=== PATIENT | female | born 1995 | race American Indian/Alaskan Native ===

== ENCOUNTER 2020-11-07 10:59 | Emergency (ER) | payer OTHER, SELFPAY ==
--- NOTE | ~2020-11-07 | XR_ITS ---
EXAMINATION: XR CHEST CLINICAL INFORMATION: Chest pain COMPARISON: None TECHNIQUE: 2 views of the chest were obtained. FINDINGS: No significant abnormality is noted involving the heart, lungs, mediastinum, bony thorax or soft tissues. XR/XR chest 2V IMPRESSION: Unremarkable chest examination.
[2020-11-07 11:59] VITALS: BP 111/72; PULSE 74; RESP 18; TEMP 36.5; O2SAT 100; BMI 27.4
--- NOTE | 2020-11-07 12:16 | ED_ITS ---
HPI - General Adult General Chief complaint: General Medical Stated complaint: quest to covid vaccine Time Seen by Provider: 11/07/20 12:16 Source: patient Mode of arrival: ambulatory Limitations: no limitations History of Present Illness HPI narrative: 25-year-old female presents with chest pain after receiving her COVID pfizer vaccination 3 days ago. This was her 1st dose. Patient states she received the COVID vaccination 3 days ago, and then 2 days ago she started having chest pain. The chest pain is constant and is substernal. It is both aching and sharp. The pain fluctuates between a 3/10 to an 8/10. The pain is worse when she takes a deep breath. She feels tired. She is not short of breath, no nausea or vomiting, no sweating. She is not a smoker, no history of hypertension or hyperlipidemia, no family history of cardiac problems. Patient has no pain in her bilateral calves, she is not on any estrogen, no recent trauma or illness or immobilizations, no history of blood clots. Onset (ago): day(s) (2) Location: chest Radiation: non-radiation Severity: moderate Quality: aching and sharp Pain Consistency: constant Relieving factors: none Exacerbating factors: other (deep breath) Associated symptoms: chest pain Treatments prior to arrival: none Related Data Allergies Allergy/AdvReac Type Severity Reaction Status Date / Time No Known Allergies Allergy Unverified 10/29/19 16:17 Review of Systems Constitutional: Constitutional: Denies body ache(s), Denies chills, Denies fatigue, Denies fever(s), Denies headache(s), Denies malaise and Denies weakness Eyes: Eyes: Denies diplopia ENT: Denies vertigo, Denies dizziness, Denies otalgia, Denies headache(s), Denies mouth pain, Denies post nasal drip, Denies sinus pain, Denies sinus pressure, Denies sore throat and Denies throat swelling Cardiovascular: Cardiovascular: Reports chest pain, Denies Epigastric Pain, Denies syncope, Denies leg edema, Denies lightheadedness, Denies Loss of Consciousness, Denies radiating jaw, neck or arm pain, Denies palpitations, Denies dyspnea and Denies dyspnea on exertion Respiratory: Respiratory: Denies chest congestion, Denies cough, Reports pain on inspiration, Denies dyspnea, Denies dyspnea on exertion and Denies wheezing Gastrointestinal: Gastrointestinal: Denies abdominal pain, Denies hematochezia, Denies constipation, Denies diarrhea and Denies vomiting Musculoskeletal: Musculoskeletal: Reports no additional musculoskeletal complaints Neurologic: Denies confusion, Denies vertigo, Denies dizziness, Denies syncope, Denies headache(s) and Denies weakness Psychiatric: Psychiatric: Denies anxiety, Denies confusion and Denies depression Endocrine: Endocrine: Denies fatigue and Denies palpitations Allergic/Immunologic: Allergic/Immunologic: Denies throat swelling and Denies wheezing PMFSH Past Medical History Medical History No known health problems Social History Social History Advance Directives: No Advance Directives Information Provided: No Patient : No Physical Exam Vital Signs: Vital Signs: Last Vital Signs Temp 97.7 F 11/07/20 11:59 Pulse 74 11/07/20 11:59 Resp 18 11/07/20 11:59 BP 111/72 11/07/20 11:59 Pulse Ox 100 11/07/20 11:59 Body Mass Index 27.4 Const: General: No confusion Nutritional Appearance: well nourished Orientation/consciousness: No confusion Limitations: no limitations Eyes: Pupils: Equal, round and reactive pupils present Neck: Neck: Yes full ROM, Yes no lymphadenopathy and Yes supple Resp: Effort & Inspection: normal respiratory effort and able to speak in complete sentences Auscultation: clear to auscultation bilaterally, no crackles, no rales, no rhonchi and no wheezes Cardio: Rate: regular rate Rhythm: regular rhythm Heart sounds: S1 normal heart sound present and S2 normal heart sound present GI: Inspection: Yes normal to inspection Palpation (GI): Soft to palpation, nontender, no guarding and not rigid Percussion: Yes normal to percussion Auscultation: normal bowel sounds Skin: General skin exam: no rashes or lesions noted Neuro: General: No confusion Cranial nerves: Yes Equal, round and reactive pupils present Extrem: General: Yes normal to inspection and Yes full ROM Psych: Appearance: grossly normal Affect: normal affect Attitude: cooperative Thought process: Normal thought process present Course Course Course Narrative: 19-year-old female presents with 2 days of constant chest pain that waxes and wanes that is substernal in nature after receiving COVID vaccination. Patient also reports pleuritic pain. Will get EKG, troponin, D- dimer, chest x-ray Getting BNP and CRP, concern for myocarditis Reevaluation(s) Reevaluation #1: Discussed with Dr Padilla, who feels only 2 days post vaccination is too soon for myocarditis symptoms. Patient has a normal EKG that is nonischemic with no elevation of troponin. BNP is normal, D-dimer is within normal limits, chest x-ray is negative, CRP is only mildly elevated at 1.32. Discussed my concerns with patient, stated she should be monitoring her symptoms for the next week, and if in a week from now she continues to have chest pain, she should return for further evaluation. Patient verbalized agreement understanding of the plan. Medical Decision Making Lab Data Labs: Lab Results 11/07/20 11/07/20 11/07/20 Range/Units 12:57 12:57 12:57 D-Dimer 228 NG/ML Troponin I High Sens < 3.5 (<3.5-17.0) ng/L C-Reactive Protein 1.32 H (< or = 0.50) mg/dL B-Natriuretic Peptide 29 (<100) pg/mL 11/07/20 Range/Units 12:57 D-Dimer NG/ML Troponin I High Sens (<3.5-17.0) ng/L C-Reactive Protein (< or = 0.50) mg/dL B-Natriuretic Peptide Cancelled (<100) pg/mL Discharge Plan Discharge Clinical Impression: Chest pain Qualifiers: Chest pain type: other chest pain Qualified Code(s): R07.89 - Other chest pain Patient Disposition: Home, Self-Care Instructions: Chest Pain (ED) Additional Instructions: Her chest x-ray, your labs, in your EKG were all normal today. However, if you are still having chest pain in 1 week, I want you to be evaluated, and return to the emergency room. As we discussed, these could be signs or symptoms of myoca rditis, although it is extremely rare and unlikely. Please return to emergency room for any other new or concerning symptoms.
--- NOTE | 2020-11-07 12:19 | ECG_ITS ---
Test Reason : CP Blood Pressure : / mmHG Vent. Rate : 066 BPM Atrial Rate : 066 BPM P-R Int : 126 ms QRS Dur : 084 ms QT Int : 400 ms P-R-T Axes : 062 045 038 degrees QTc Int : 419 ms Normal sinus rhythm Normal ECG No previous ECGs available Referred By: Marichuy Ross Electronically Signed By:KIP PORTILLO
[2020-11-07] MEDS: Ibuprofen 800 MG TABLET PO (13:06)
[2020-11-07] MEDS: Aspirin Enteric Coated 325 MG TABLET.DR PO (13:06)
[2020-11-07] MEDS: Acetaminophen 325 MG TABLET 950 MG PO (13:06)
[2020-11-07 13:29] LABS: D Dimer 228 NG/ML
[2020-11-07 13:40] LABS: C Reactive Protein 1.32 mg/dL (< or = 0.50)
[2020-11-07 13:47] LABS: B Type Natriuretic Peptide 29 pg/mL (<100); Troponin-I High Sensitivity < 3.5 ng/L (<3.5-17.0)
[2020-11-07 14:08] VITALS: RESP 18
== END 2020-11-07 14:13 | disposition home or self-care (01) ==
PROVIDERS: Physician Assistant; Emergency Provider Emergency Medicine; PCP Hospitalist
DX: R07.9 Chest pain, unspecified (principal); R06.02 Shortness of breath; Z79.899 Other long term (current) drug therapy
CPT/HCPCS: 36415; 71046; 83880; 84484; 85379; 86140; 93005; 99283

== ENCOUNTER 2021-01-20 08:18 | Outpatient (REF) | payer OTHER, SELFPAY ==
[2021-01-20 14:13] LABS: CT PCR NOT DETECTED (Not Detect.); NG PCR NOT DETECTED (Not Detect.)
[2021-01-21 14:54] LABS: BV Int Neg Control Negative (Negative); BV Int Pos Control Positive (Positive)
== END 2021-01-20 08:19 | disposition home or self-care (01) ==
LOC: HO.LAB 08:18
PROVIDERS: Visit Provider Advanced Practice Midwife
DX: Z01.419 Encounter for gynecological examination (general) (routine) without abnormal findings (principal); Z20.2 Contact with and (suspected) exposure to infections with a predominantly sexual mode of transmission; L30.9 Dermatitis, unspecified
CPT/HCPCS: 87480; 87491; 87510; 87591; 87660; 88142

== ENCOUNTER 2021-01-30 09:11 | Outpatient (REF) | payer OTHER, SELFPAY ==
[2021-01-30 11:38] LABS: Hemoglobin 14.1 g/dl (12.0-16.0); Mean Corpuscular Hemoglobin 25.2 pg (27.0-33.0); Mean Corpuscular Volume 78.7 fL (80.0-98.0); Mean Platelet Volume 10.4 fL (9.4-12.3); Platelet Count 272 X10*3/uL (160-400); Red Blood Count 5.59 X10*6/uL (4.20-5.50); Red Cell Distribution Width 12.8 % (11.0-16.0); White Blood Count 3.8 X10*3/uL (4.8-10.8)
[2021-01-30 12:10] LABS: TSH reflex Free T4 0.85 uIU/mL (0.32-4.0)
[2021-01-30 12:14] LABS: Alanine Aminotransferase 13 U/L (0-31); Albumin Level 4.4 g/dL (3.5-5.0); Alkaline Phosphatase 66 U/L (39-117); Anion Gap 11 (12-20); Aspartate Amino Transferase 17 U/L (5-31); Bilirubin Total 0.5 mg/dL (0.0-1.0); Blood Urea Nitrogen 11 mg/dL (9-16); Calcium 9.5 mg/dL (8.4-10.2); Carbon Dioxide 24 mmol/L (22-29); Chloride 106 mmol/L (96-108); Cholesterol 175 mg/dL; Estimated Glomerular Filt Rate > 60; Glucose Fasting 99 mg/dL (60-99); HDL Cholesterol 57 mg/dL; LDL Cholesterol Calculated 97 mg/dl; Potassium 4.5 mmol/L (3.3-5.1); Sodium 136 mmol/L (135-145); Total Protein 7.3 g/dL (6.5-8.0); Triglycerides 108 mg/dL
== END 2021-01-30 09:12 | disposition home or self-care (01) ==
LOC: HO.WFDLDS 09:11
PROVIDERS: Visit Provider Hospitalist
DX: Z00.00 Encounter for general adult medical examination without abnormal findings (principal); R68.89 Other general symptoms and signs
CPT/HCPCS: 36415; 80053; 80061; 84443; 85027

== ENCOUNTER 2021-02-08 09:46 | Emergency (ER) | payer OTHER, SELFPAY ==
[2021-02-08 11:30] VITALS: BP 118/76; PULSE 72; RESP 16; TEMP 37.1; O2SAT 100; BMI 28.3
--- NOTE | 2021-02-08 12:38 | ED_ITS ---
HPI - Eye Problem General Chief complaint: Eye Problems Stated complaint: swollen itchy eyes affecting vision Time Seen by Provider: 02/08/21 12:36 History of Present Illness HPI Narrative: Patient complains of bilateral eye redness and mild swelling under both eyelids which has been going on for several weeks, her doctor is treating her with Zyrtec and allergy eyedrops but the problem persists Her doctor gave her 3 days of prednisone which resolved the problem will when the prednisone. The problem came back She has no eye pain no vision loss no vision changes no discharge her eyes are not comes up in the morning no photophobia Related Data Previous Rx's Medication Instructions Recorded cetirizine 10 mg tablet (Zyrtec) 10 mg PO DAILY 30 Days #30 tab 02/06/21 olopatadine 0.2 % eye drops 1 drp OPHTHALMIC (EYE) DAILY PRN 02/06/21 (Pataday Once Daily Relief) 30 Days #2.5 ml Allergies Allergy/AdvReac Type Severity Reaction Status Date / Time No Known Allergies Allergy Verified 02/06/21 15:33 Review of Systems Review of Systems: Positive for eye irritation and redness Negatives no fever no chills no headache no vision change no vision loss no photophobia no eye pain no discharge from eyes no sinus pain no shortness of breath no difficulty breathing or swallowing Yes all other systems are reviewed and are negative [facility] Past Medical History Source: nursing notes reviewed Medical History No known health problems Social History Social History Housing: Apartment Alcohol intake: current Alcohol intake frequency: holidays/special occasions only Patient Tobacco Use Status: Never used Tobacco Advance Directives: No Advance Directives Information Provided: No Patient : No Current occupational status: employed Physical Exam Vital Signs: Vital Signs: Last Vital Signs Temp 98.7 F 02/08/21 11:30 Pulse 72 02/08/21 11:30 Resp 16 02/08/21 11:30 BP 118/76 02/08/21 11:30 Pulse Ox 100 02/08/21 11:30 BMI result Body Mass Index 28.3 General appearance is comfortable relaxed and no distress The eye exam visual acuity is normal bilaterally, there is no photophobia, p upils equal round reactive to light and extraocular motions are intact, there is some conjunctival redness bilaterally and symmetrically there may be some slight watery discharge there is no yellow discharge There is mild lower lid edema and discoloration, sinuses are nontender, no respiratory distress Extremities full range of motion x4 Skin no rash Course Course Course Narrative: Patient had been previously treated with a short course of steroids which eliminated the problem but returned on completion of the steroids so I did a longer 8 day course of prednisone taper there is no evidence of a bacterial conjunctivitis or any serious underlying eye pathology and patient was discharged Discharge Plan Discharge Clinical Impression: Allergic conjunctivitis Patient Disposition: Home, Self-Care Additional Instructions: The problem with both her eyes is most likely from allergies Because a short course of steroids was helpful but then the problem return when the 3 day course of steroids was done we are going to try a longer course of steroids Follow with your doctor Return any time for eye pain vision loss any worse condition or any worse concerns Prescriptions: No Action olopatadine [Pataday Once Daily Relief] 0.2 % drops 1 drp ophthalmic (eye) DAILY PRN (Reason: itching) 30 Days Qty: 2.5 RF: 2 cetirizine [Zyrtec] 10 mg tablet 10 mg PO DAILY 30 Days Qty: 30 RF: 2 Interventions: ED Discharge Assessment Last Done: 02/08/21 13:02 Discharge Date/Time: 02/08/21 13:03
[2021-02-08] MEDS: predniSONE 20 MG TABLET 60 MG PO (12:54)
== END 2021-02-08 13:03 | disposition home or self-care (01) ==
PROVIDERS: Emergency Provider Emergency Medicine; PCP Hospitalist
DX: H10.13 Acute atopic conjunctivitis, bilateral (principal)
CPT/HCPCS: 99283

== ENCOUNTER 2021-06-13 10:00 | Outpatient (RCR) | payer OTHER, SELFPAY ==
--- NOTE | 2021-06-08 12:52 | MHC.PT.EP ---
[facility] [place] Office [place] Office [place] Office [address] [phone] F: [phone] F: [phone] F: [phone] F: [phone] Physical Therapy Plan of Care Date of Evaluation: Date of Surgery: Diagnosis: dorsalgia Assessment: Patient is a 26 year old R handed female who presents with s/s consistent with low back pain. She enjoys power weight lifting but has not been able to since onset. She works with daily job demands including sitting, driving, walking, carrying children. Patient past medical history is fairly unremarkable. Current impairments include pain, flexibility, posture, ROM, strength, activity tolerance and functional mobility. Functional limitations include decreased ability to lift, exercise, push, pull, carry, stand and walk. Patient is motivated with good rehab potential. Skilled PT will address impairments and functional limitations in order to achieve goals. Frequency and Duration: The patient will be seen 2x/week for 5 weeks Short Term Goals: I with HEP - 2 weeks Symmetrical innom and flexibility, ROM - 3 weeks [facility] Goals: Restore lifting routine - 5 weeks Aware of mechanics, symmetrical squat - 5 weeks Oswestry 10% or less - 5 weeks Treatment Plan: Modalities to reduce pain, spasms and effusion. Manual therapy to restore motion and function. Therapeutic exercise to improve strength and flexibility. Neuromuscular re-education for posture and balance. Therapeutic activities to return to functional activities of daily living. Electronically signed by: Estuardo Bauman, PT Please sign and return to therapist. Thank you for your referral.
--- NOTE | 2021-11-02 10:25 | MHC.PT.DC ---
[facility] [place] Office [place] Office [place] Office [address] [phone] F: [phone] F: [phone] F: [phone] F: [phone] Physical Therapy Discharge Report Diagnosis: dorsalgia Date of Surgery: Date of Evaluation: 06/07/21 Date of Discharge: 06/26/21 Treatments to Date: 2 Cancellations to Date: No Shows to Date: Discharge Status: Improved Function Independent with HEP Discharge Summary: Pt elected to continue with HEP after last visit. 06/13/21: pt progressed with TrA activities. good carryover between ex. we will continue to work squat mechanics and higher level ex as this is what pt wants to get back to doing. good awareness of lumbar lordosis after cues. Patient is a 26 year old R handed female who presents with s/s consistent with low back pain. She enjoys power weight lifting but has not been able to since onset. She works with daily job demands including sitting, driving, walking, carrying children. Patient past medical history is fairly unremarkable. Current impairments include pain, flexibility, posture, ROM, strength, activity tolerance and functional mobility. Functional limitations include decreased ability to lift, exercise, push, pull, carry, stand and walk. Patient is motivated with good rehab potential. Skilled PT will address impairments and functional limitations in order to achieve goals. Electronically signed by: Estuardo Bauman, PT Please sign and return to therapist. Thank you for your referral.
== END 2021-11-02 10:27 | disposition home or self-care (01) ==
LOC: HO.PTCHIC 10:00
PROVIDERS: PCP Hospitalist; Visit Provider Family Medicine
DX: M54.9 Dorsalgia, unspecified (principal)
CPT/HCPCS: 97110; 97112; 97161; 97530

== ENCOUNTER 2021-06-15 11:13 | Outpatient (REF) | payer OTHER, SELFPAY ==
[2021-06-15 11:55] LABS: IDNOW Serial# 08D9AD1C
[2021-06-15 11:56] LABS: COVID-19 Test Negative (Negative)
== END 2021-06-15 11:14 | disposition home or self-care (01) ==
LOC: HO.LAB 11:13
PROVIDERS: Visit Provider Internal Medicine
DX: Z20.822 Contact with and (suspected) exposure to COVID-19 (principal)
CPT/HCPCS: 87635; C9803

== ENCOUNTER 2021-08-30 13:49 | Outpatient (REF) | payer OTHER, SELFPAY ==
[2021-08-31 06:50] LABS: CT PCR NOT DETECTED (Not Detect.); NG PCR NOT DETECTED (Not Detect.)
[2021-08-31 12:34] LABS: BV Int Neg Control Negative (Negative); BV Int Pos Control Positive (Positive)
== END 2021-08-30 13:50 | disposition home or self-care (01) ==
LOC: HO.LAB 13:49
PROVIDERS: Visit Provider Advanced Practice Midwife
DX: L29.2 Pruritus vulvae (principal); N89.8 Other specified noninflammatory disorders of vagina; Z20.2 Contact with and (suspected) exposure to infections with a predominantly sexual mode of transmission
CPT/HCPCS: 87480; 87491; 87510; 87591; 87660

== ENCOUNTER 2022-03-06 13:22 | Outpatient (REF) | payer OTHER, SELFPAY ==
[2022-03-07 09:22] LABS: CT PCR NOT DETECTED (Not Detect.); NG PCR NOT DETECTED (Not Detect.)
[2022-03-07 11:32] LABS: BV Int Neg Control Negative (Negative); BV Int Pos Control Positive (Positive)
[2022-03-12 03:04] LABS: HPV 16 RNA NOT DETECTED (NOT DETECTED); HPV mRNA E6/E7 rflx Detected (Not Detected)
== END 2022-03-06 13:23 | disposition home or self-care (01) ==
LOC: HO.LNP 13:22
PROVIDERS: PCP Hospitalist; Visit Provider Advanced Practice Midwife
DX: Z01.411 Encounter for gynecological examination (general) (routine) with abnormal findings (principal); Z11.51 Encounter for screening for human papillomavirus (HPV); N89.8 Other specified noninflammatory disorders of vagina
CPT/HCPCS: 0353U; 81025; 87255; 87480; 87510; 87624; 87625; 87660; 88142

== ENCOUNTER → 2022-06-21 13:37 | Outpatient (BNVA) | payer OTHER, SELFPAY | PROVIDERS: PCP Hospitalist; Visit Provider Obstetrics & Gynecology ==

== ENCOUNTER 2022-12-27 12:50 | Outpatient (AMB) | payer OTHER, SELFPAY ==
--- NOTE | 2022-12-27 13:07 | MHC.OFFVIS ---
Intake Vital Signs 12/27/22 13:10 BP 114/72 Intake Visit Reasons: Vaginal discomfort International Project Engineer Required: No Information Interpreted: non-clinical & clinical Accounts Administrator: Accounts Administrator Present (Adriana NAPOLES) Accompanied by: Self / Same As Patient Allergies No Known Allergies Allergy (Verified 12/27/22 13:10) Is last menstrual period known: No () HPI HPI Comments History of Present Illness Details Presenting 8 weeks complaining of vaginal pressure after prolonged standing up associated urinary frequency, no dysuria, vaginal discharge with no odor or itching and perirectal hemorrhoid that are causing perirectal itching and painful defecation PFSH Medical History Eczema No known health problems Social History Housing: Apartment Alcohol intake: current Alcohol intake frequency: holidays/special occasions only Patient Tobacco Use Status: Never used Tobacco Current occupational status: employed Female Reproductive History Menstrual Age of Menarche: 14 Review of Systems Const All systems reviewed & are unremarkable except as noted in HPI and below Physical Exam Vital Signs: Last Vital Signs BP 114/72 12/27/22 13:10 Other: No evidence of external hemorrhoid General: Yes no CVA tenderness External Female Exam: normal external appearance and normal appearance of the urethra Speculum Exam - Vagina: normal appearance of the vagina, normal palpation, no lesions and no masses Speculum Exam - Cervix: normal appearance of the cervix, normal palpation, no lesions, no masses and nontender Bimanual exam- vagina & uterus: normal bimanual exam, normal palpation, uterine size normal, normal palpation, uterine shape normal, No Cervical tenderness present and non-tender Bimanual Exam- Adnexa, other: normal adnexae Back/Spine/Pelvis Back: no CVA tenderness Assessment & Plan Assessment & Plan (1) Vaginal discomfort: Code(s): N94.9 - Unspecified condition associated with female genital organs and menstrual cycle Plan: GC/chlamydia with BV panel taken Urine test done in the office was negative Will order pelvic ultrasound to rule out pelvic pathology causing vaginal discomfort. Instructions given the patient to schedule a 2 week ultrasound follow-up appoint (2) Internal hemorrhoids: Code(s): K64.8 - Other hemorrhoids Plan: Recommended for the patient to use [id number] hemorrhoidal cream or suppositories for the coming 2 weeks, if no improvement refer to general surgery (3) Microscopic hematuria: Code(s): R31.29 - Other microscopic hematuria Plan: Urine dip done in the office showed microscopic hematuria, will send urine for culture and repeat urine dip in 2 weeks. If urine culture is negative and microscopic hematuria is persistent will refer to Urology. Instruction given to patient to schedule an appointment for repeat urine dip in 2 weeks. All questions answered, the patient verbalized understanding. Orders: Orders CT NG by PCR Today N94.9 - Unspecified condition associated with female genital organs and menstrual cycle US pelvic and transvaginal Today N94.9 - Unspecified condition associated with female genital organs and menstrual cycle Bacterial Vaginosis Panel Today N94.9 - Unspecified condition associated with female genital organs and menstrual cycle Coding Level of Care Code Est Pt Level 3 (19921) Diagnoses Vaginal discomfort N94.9 Internal hemorrhoids K64.8 Microscopic hematuria R31.29
[2022-12-27 13:10] VITALS: BP 114/72
== END 2022-12-27 13:37 | disposition home or self-care (01) ==
PROVIDERS: PCP Hospitalist; Visit Provider Obstetrics & Gynecology
DX: N94.9 Unspecified condition associated with female genital organs and menstrual cycle (principal); K64.8 Other hemorrhoids; R31.29 Other microscopic hematuria; Z32.02 Encounter for pregnancy test, result negative
CPT/HCPCS: 99213

== ENCOUNTER 2022-12-27 12:50 | Outpatient (REF) | payer OTHER, SELFPAY ==
[2022-12-27 17:45] LABS: CT PCR NOT DETECTED (Not Detect.); NG PCR NOT DETECTED (Not Detect.)
[2022-12-28 08:58] LABS: BV Int Neg Control Negative (Negative); BV Int Pos Control Positive (Positive)
== END 2022-12-27 12:51 | disposition home or self-care (01) ==
LOC: HO.LNP 12:50
PROVIDERS: PCP Hospitalist; Visit Provider Obstetrics & Gynecology
DX: R31.29 Other microscopic hematuria (principal); N94.9 Unspecified condition associated with female genital organs and menstrual cycle; K64.8 Other hemorrhoids; Z20.2 Contact with and (suspected) exposure to infections with a predominantly sexual mode of transmission
CPT/HCPCS: 0353U; 81025; 87086; 87147; 87480; 87510; 87660

== ENCOUNTER 2023-01-16 09:14 | Outpatient (AMB) | payer OTHER, SELFPAY ==
--- NOTE | 2023-01-16 09:21 | MHC.OFFVIS ---
Intake Vital Signs 01/16/23 09:32 Height 5 ft 4 in Weight 169 lb 12.095 oz BMI 29.1 BP 118/70 Intake Visit Reasons: Colpo Conciliator Required: No Information Interpreted: non-clinical & clinical Roof Cement And Paint Maker: Roof Cement And Paint Maker Present (Adriana Wisemanjose NAPOLES) Accompanied by: Self / Same As Patient Allergies No Known Allergies Allergy (Verified 01/16/23 09:33) Is last menstrual period known: No () HPI HPI Comments History of Present Illness Details Presenting for colposcopy for ascus/HPV positive with no complaints PFSH Medical History Eczema No known health problems Social History Housing: Apartment Alcohol intake: current Alcohol intake frequency: holidays/special occasions only Patient Tobacco Use Status: Never used Tobacco Current occupational status: employed Female Reproductive History Menstrual Age of Menarche: 14 Review of Systems Const All systems reviewed & are unremarkable except as noted in HPI and below Physical Exam Vital Signs: Last Vital Signs BP 118/70 01/16/23 09:32 BMI result Body Mass Index 29.1 General: Yes no CVA tenderness External Female Exam: normal external appearance and normal appearance of the urethra Speculum Exam - Vagina: normal appearance of the vagina, normal palpation, no lesions and no masses Speculum Exam - Cervix: normal appearance of the cervix, normal palpation, no lesions, no masses and nontender Bimanual exam- vagina & uterus: normal bimanual exam, normal palpation, uterine size normal, normal palpation, uterine shape normal, No Cervical tenderness present and non-tender Bimanual Exam- Adnexa, other: normal adnexae Back/Spine/Pelvis Back: no CVA tenderness Office Procedures Colposcopy Before the procedure was started discussed with the patient the procedure, alternatives & all the risks associated with the procedure (bleeding, infection, injury to vagina, bladder, vessels, possible need for transfusion with all its risks) then patient signed the consent UPT done in the office & negative Pap smear = ascus/HPV positive Speculum inserted, acetic acid used Colposcopy done Transformation zone seen, acetowhite lesions identified at 11+12+1+3 o?clock, cervical biopsies taken from 11+12+1+3 o?clock, ECC done afterwards. Vaginoscopy of the upper vagina showed no evidence of any aceto-white lesions Monsel solution used for hemostasis. The patient tolerated well . At the end the patient was instructed to call if temp>100.4, abdominal pain, n/v, bleeding; The patient was given the following instructions: nothing per vagina, no intercourse or bath tub use. All questions answered the patient verbalized understanding. Instructed the patient to make an appointment in 2 weeks for follow-up This note was generated with a voice recognition program. Some errors may have been overlooked during the review of this note. Sometimes these errors may affect the content or meaning of a given sentence. 02435-[id number] of cervix including upper vagina with biopsy and ECC Procedure code (CPT) selection complete Assessment & Plan Assessment & Plan (1) ASCUS with positive high risk HPV cervical: Code(s): R87.610 - Atypical squamous cells of undetermined significance on cytologic smear of cervix (ASC-US); R87.810 - Cervical high risk human papillomavirus (HPV) DNA test positive Plan: Colposcopy/biopsy/ECC done, see procedure note Orders: Orders AMB Colposcopy Today R87.610 - Atypical squamous cells of undetermined significance on cytologic smear of cervix (ASC-US), R87.810 - Cervical high risk human papillomavirus (HPV) DNA test positive Coding Level of Care Code Procedure Only Diagnoses ASCUS with positive high risk HPV cervical R87.610; R87.810 CPT Codes Colposcopy - CPT: 11952-Ydkfaeyqh of cervix including upper vagina with biopsy and ECC ([id number])
[2023-01-16 09:32] VITALS: BP 118/70; BMI 29.1
== END 2023-01-16 09:59 | disposition home or self-care (01) ==
PROVIDERS: PCP Hospitalist; Visit Provider Obstetrics & Gynecology
DX: R87.610 Atypical squamous cells of undetermined significance on cytologic smear of cervix (ASC-US) (principal); R87.810 Cervical high risk human papillomavirus (HPV) DNA test positive; Z32.02 Encounter for pregnancy test, result negative
CPT/HCPCS: 57454

== ENCOUNTER 2023-01-16 09:14 | Outpatient (REF) | payer SELFPAY | END 2023-01-16 09:15 | disposition home or self-care (01) | LOC: HO.LNP 09:14 | PROVIDERS: PCP Hospitalist; Visit Provider Obstetrics & Gynecology | DX: R87.810 Cervical high risk human papillomavirus (HPV) DNA test positive (principal); R87.610 Atypical squamous cells of undetermined significance on cytologic smear of cervix (ASC-US) | CPT/HCPCS: 57454; 81025; 88305 ==

== ENCOUNTER 2023-01-22 09:51 | Outpatient (AMB) | payer OTHER, SELFPAY ==
[2023-01-22 09:55] VITALS: BP 117/70; PULSE 75; O2SAT 99; BMI 33.7
--- NOTE | 2023-01-22 09:55 | A.OFFPC_ITS ---
Vital Signs 01/22/23 09:55 Height 5 ft 4 in Weight 196 lb 4 oz BMI 33.7 BP 117/70 Blood Pressure Location Lt brachial Position Sitting Pulse 75 Pulse Source Pulse Oximeter Pulse Oximetry (%) 99 Oxygen Delivery Method Room Air Intake Visit Reasons: rectal bleeding for 2 months after childbirth Intake Note: Patient is here with rectal bleeding for 2 months after childbirth and lingering pain afterword. Allergies No Known Allergies Allergy (Verified 01/22/23 10:00) Tobacco use date assessed: 01/22/23 Dental Screening Dental Screen Date: 01/22/23 Did you have a dental visit in the last 12 months?: Yes Did you have a dental problem in the last 6 months where you did not have access to dental care?: No Was dental information given to patient?: Patient has dentist HPI rectal bleeding for 2 months after childbirth HPI Details 27 y/o female presents today with compla ints of rectal bleeding x2 months, after childbirth. She reports pain when passing stools. She reports blood in stool and pain afterwards. [facility] Medical History Eczema No known health problems Social History Housing: Apartment Alcohol intake: current Alcohol intake frequency: holidays/special occasions only Patient Tobacco Use Status: Never used Tobacco e-Cigarette/Vaping Use: Never Used Current occupational status: employed Cognitive needs: No Hearing needs: No Vision needs: No Female Reproductive History Menstrual Age of Menarche: 14 Questionnaire PHQ-9 Over the last 2 weeks, how often have you been bothered by any of the following problems? 1. Little interest or pleasure in doing things: not at all 2. Feeling down, depressed, or hopeless: not at all 3. Trouble falling or staying asleep, or sleeping too much: not at all 4. Feeling tired or having little energy: not at all 5. Poor appetite or overeating: not at all 6. Feeling bad about yourself - or that you are a failure or have let yourself or your family down: not at all 7. Trouble concentrating on things, such as reading the newspaper or watching television: not at all 8. Moving or speaking so slowly that other people could have noticed. Or the opposite - being so fidgety or restless that you have been moving around a lot more than usual: not at all 9. Thoughts that you would be better off or of hurting yourself in some way: not at all Total score: 0 Source: Developed by Drs. Wojciech Sullivan, Josafat Alvares and colleagues, with an educational nando from [employer]. Thrive Questionnaire Date Thrive assessed: 01/22/23 I am a: Patient What is your living situation today?: I have a steady place to live Within the past 12 months, did the food you bought not last and you didn't have the money to get more?: Never true Within the past 12 months, did you worry whether your food would run out before you got money to buy more?: Never true Do you have trouble paying for medicines?: No Do you have trouble getting transportation to medical appointments?: No Do you have trouble paying your heating and electricity bill?: No Do you have trouble taking care of your child, family member or friend?: No Do you have trouble with day-to-day activities such as bathing, preparing meals, shopping, managing finances, etc.?: No Are you currently unemployed and looking for a job?: No Are you interested in more education?: Yes AUDIT C Alcohol Use Questionnaire (AUDIT-C) 1. How often do you have a drink containing alcohol?: Never 3. How often do you have six or more drinks on one occasion?: Never Total Score: 0 PORSHA-7 AMB Questionnaire PORSHA-7 Date PORSHA - 7 assessed: 01/22/23 Feeling nervous, anxious, or on edge: 0 = Not at all Not being able to stop or control worryin = Not at all Worrying too much about different things: 0 = Not at all Trouble relaxin = Not at all Being so restless that it is hard to sit still: 0 = Not at all Becoming easily annoyed or irritable: 0 = Not at all Feeling afraid as if something awful might happen: 0 = Not at all Total PORSHA-7 score (0-4 normal; 5-9 mild; 10-14 moderate; 15-21 severe): 0 Source: Developed by Fatmata Villalobos Kurt Kroenke and colleagues, with an educational nando from [employer]. Physical exam (Primary Care) Vital Signs: Last Vital Signs Pulse 75 01/22/23 09:55 BP 117/70 01/22/23 09:55 Pulse Ox 99 01/22/23 09:55 Oxygen Delivery Method Room Air 01/22/23 09:55 BMI result Body Mass Index 33.7 Tobacco/Smoking Status: Tobacco use Status Tobacco use date assessed 01/22/23 01/22/23 10:07 Patient Tobacco Use Status Never used Tobacco 01/22/23 10:07 e-Cigarette/Vaping Use Never Used 01/22/23 10:07 PHQ-9: PHQ-9 Score PHQ-9: Total score 0 01/22/23 10:07 Thrive Assessment: Date of Thrive Assessment Date Thrive assessed 01/22/23 01/22/23 10:07 Assessment and Plan Assessment & Plan (1) Rectal bleeding: Code(s): K62.5 - Hemorrhage of anus and rectum Plan: No?external?hemorrhoids?or?fissures. Likely?internal?hemorrhoids Will?refer?to?GI?for?further?workup?and?treatment Hydrate?well Use?Senokot.??Keep?stools?soft Orders: Orders Complete Blood Count Auto Diff Today K62.5 - Hemorrhage of anus and rectum, Z00.00 - Encounter for general adult medical examination without abnormal findings Basic Metabolic Panel Today K62.5 - Hemorrhage of anus and rectum, Z00.00 - Encounter for general adult medical examination without abnormal findings Referrals Gastroenterology Referral K62.5 - Hemorrhage of anus and rectum Medications: New sennosides (Senokot) 8.6 mg PO BID PRN 28 tabs 1RF constipation 14 days Coding Level of Care Code Est Pt Level 3 (47933) Diagnoses Rectal bleeding K62.5
== END 2023-01-22 10:40 | disposition home or self-care (01) ==
PROVIDERS: PCP Hospitalist; Visit Provider Family Medicine
DX: K62.5 Hemorrhage of anus and rectum (principal)
CPT/HCPCS: 99213

== ENCOUNTER 2023-01-23 16:49 | Emergency (ER) | payer SELFPAY ==
--- NOTE | ~2023-01-23 | XR_ITS ---
EXAMINATION: XR CHEST CLINICAL INFORMATION: Cough COMPARISON: Previous chest x-ray October 2020 TECHNIQUE: 2 views of the chest were obtained. FINDINGS: No significant abnormality is noted involving the heart, lungs, mediastinum, bony thorax or soft tissues. XR/XR chest 2V IMPRESSION: Unremarkable examination.
[2023-01-23 17:06] VITALS: BP 114/77; PULSE 100; RESP 18; TEMP 36.9; O2SAT 98; BMI 33.9
--- NOTE | 2023-01-23 17:07 | ED_ITS ---
HPI - Female Genitourinary General Chief complaint: General Medical Stated complaint: vaginal pain when urinating Time Seen by Provider: 01/23/23 20:31 Source: patient, RN notes reviewed and old records reviewed Mode of arrival: ambulatory Limitations: no limitations History of Present Illness HPI Narrative: 27-year-old female presents for evaluation of rectal pain. Patient reports that she is 2 months . She reports that she had a vaginal tear that was repaired with sutures after giving However in that time she has also had rectal pain every time she has bowel movements She reports some bright red blood with bowel movements She saw her primary doctor several times for this She states that she has tried several medications including stool softeners, laxatives and ?numbing medicine. ? Patient reports that she went to PCP last night who inspected her rectum and did not find any concerning abnormalities. The patient was referred to GI but has not yet followed up She has a cough that started today but denies fevers, chills, shortness of breath Related Data Previous Rx's Medication Instructions Recorded vitamins with calcium 1 tab PO DAILY 90 days #90 tabs 03/08/22 no.72-iron 29 mg-folic acid 1 mg tablet ( Plus) sennosides 8.6 mg tablet (Senokot) 8.6 mg PO BID PRN constipation 14 01/22/23 days #28 tabs hydrocortisone acetate 25 mg 25 mg SC BID 5 days #24 ea 01/23/23 rectal suppository (Anucort-HC) Allergies Allergy/AdvReac Type Severity Reaction Status Date / Time No Known Allergies Allergy Verified 01/23/23 17:06 Review of Systems 2 Constitutional: Constitutional: Denies chills and Denies fever(s) Eyes: Eyes: Denies blurry vision ENT: Denies sore throat Cardiovascular: Cardiovascular: Denies chest pain and Denies dyspnea Respiratory: Respiratory: Reports cough and Denies dyspnea Gastrointestinal: Gastrointestinal: Denies abdominal pain, Denies melena, Denies bloating, Reports hematochezia, Denies constipation, Denies nausea and Denies vomiting Integumentary/Breasts: Skin/Breast: Denies rash PMFSH Past Medical History Medical History Eczema No known health problems Social History Social History (Reviewed 01/22/23 @ 10:01 by ERNESTINE Graves Housing: Apartment Alcohol intake: current Alcohol intake frequency: holidays/special occasions only Patient Tobacco Use Status: Never used Tobacco e-Cigarette/Vaping Use: Never Used Advance Directives: No Current occupational status: employed Cognitive needs: No Hearing needs: No Vision needs: No Physical Exam 2 Vital Signs: Vital Signs: Last Vital Signs Temp 97.6 F 01/23/23 19:54 Pulse 77 01/23/23 19:54 Resp 18 01/23/23 19:54 BP 112/74 01/23/23 19:54 Pulse Ox 96 01/23/23 19:54 O2 Del Method Room Air 01/23/23 19:54 BMI result Body Mass Index 33.9 Const: General: healthy appearing, comfortable, no acute distress, alert and awake Nutritional Appearance: well nourished Orientation/consciousness: p atient oriented x3 HEENT: Head: Yes normocephalic and Yes atraumatic Eyes: Eyelids: Yes eyelids normal Conjunctivae: conjunctivae normal S clerae: sclerae normal Corneas: corneas normal Pupils: Equal, round and reactive pupils present EOM: EOMs intact bilaterally Neck: Neck: Yes full ROM Resp: Effort & Inspection: normal respiratory effort, able to speak in complete sentences and not labored GI: Other: Patient declined rectal examination or inspect Inspection: No distended Palpation (GI): Soft to palpation, not firm, nontender, no guarding and not rigid Skin: General skin exam: elasticity normal Neuro: General: patient oriented x3 Cranial nerves: Yes Equal, round and reactive pupils present and Yes Bilaterally intact EOM present Cognition (Neuro): normal cognition Course Course Course Narrative: RME: 27yo F w/PMHx eczema c/o rectal pain since giving 2mos ago w/ rectal bleeding (blood in stool & when wiping). Trying stool softeners, OTC meds, and Motrin w/o relief. Admits tore during requiring her to go to the OR for sutures. Was seen yesterday and told they didn't appreciate any external hemorrhoids. Also reports a needle was lost when they sutured her & was never found on CT. Also reports cough, congestion Labs, UA, Viral testing, CXR ordered Full HPI, ROS and PE to be performed by primary ED provider. Medical Decision Making Medical Decision Making MDM Narrative: In 19 old female presents for evaluation of rectal pain and bright red blood per rectum after giving natural 2 months ago. History is most concerning for an anal fissure or hemorrhoid. She states that her PCP inspect the area yesterday did not see any hemorrhoids. The patient reports that she has not yet been treated for hemorrhoids. She is waiting to follow up with GI. The patient has no evidence of anemia or leukocytosis, this is less likely to be infectious process. The patient declined rectal examination today. However I still feel is appropriate to treat with Anusol for hemorrhoids the patient has tried stool softeners, laxatives, analgesia to the area without any relief. Differential Diagnosis Differential Diagnoses: The differential diagnosis associated with the presentation includes Anal fissure Internal hemorrhoids External hemorrhoid Rectal pain Constipation Lab Data MDM Lab Attestation statement: I reviewed the patient's lab results. No leukocytosis or anemia. Normal platelet count. No significant electrolyte abnormalities. Normal renal function 01/23/23 17:32 01/23/23 17:32 Labs: Lab Results 01/23/23 Range/Units 17:32 WBC 4.5 L (4.8-10.8) X10*3/uL RBC 5.06 (4.20-5.50) X10*6/uL Hgb 12.8 (12.0-16.0) g/dl Hct 39.7 (37.0-47.0) % MCV 78.5 L (80.0-98.0) fL MCH 25.3 L (27.0-33.0) pg MCHC 32.2 (31.0-35.0) g/dl RDW 13.0 (11.0-16.0) % Plt Count 244 (160-400) X10*3/uL MPV 9.8 (9.4-12.3) fL Immature Gran % (Auto) 1.3 H (0.0-0.4) % Neut % (Auto) 70.3 (45-73) % Lymph % (Auto) 15.8 L (20-40) % Wise % (Auto) 9.2 (2-11) % Eos % (Auto) 2.5 (0-4) % Baso % (Auto) 0.9 (0-2) % Lymph # (Auto) 0.7 L (1.2-4.9) X10*3/uL Wise # (Auto) 0.4 (0.1-1.2) X10*3/uL Eos # (Auto) 0.1 (0.0-0.4) X10*3/uL Baso # (Auto) 0.0 (0.0-0.2) X10*3/uL Abs Immat Gran (auto) 0.06 H (0.00-0.03) X10*3/uL Absolute Neuts (auto) 3.2 (2.0-8.3) x10*3/uL Absolute Nucleated RBC 0.000 (0.0-0.012) X10*3/uL Nucleated RBC % (auto) 0.0 (0.0-0.2) /100WBC Sodium 143 (135-145) mmol/L Potassium 3.8 (3.3-5.1) mmol/L Chloride 109 H (96-108) mmol/L Carbon Dioxide 24 (22-29) mmol/L Anion Gap 14 (12-20) BUN 15 (9-16) mg/dL Creatinine 0.88 (0.5-1.4) mg/dL Estim Creat Clear Calc 103.1 Estimated GFR > 60 Random Glucose 114 (60-115) mg/dL Calcium 9.2 (8.4-10.2) mg/dL Total Bilirubin 0.4 (0.0-1.0) mg/dL Direct Bilirubin 0.1 (0.0-0.5) mg/dL AST 20 (5-31) U/L ALT 16 (0-31) U/L Alkaline Phosphatase 102 (39-117) U/L Total Protein 7.2 (6.5-8.0) g/dL Albumin 4.3 (3.5-5.0) g/dL Influenza Type A (PCR) POSITIVE A (Negative) Influenza Type B (PCR) NEGATIVE (Negative) RSV RNA Qual (PCR) NEGATIVE (Negative) SARS-CoV-2 RNA (RT-PCR) NEGATIVE (Negative) S. pyogenes GrpA KATIE Negative (Negative) Discharge Plan Discharge Clinical Impression: Influenza, Pain, rectal Patient Disposition: Home, Self-Care Instructions: Hemorrhoids (ED) Additional Instructions: Use Anusol suppository twice daily for the next 5 days You may continue to use the viscous lidocaine prescribed by your primary doctor Follow-up with GI Return for new or worsening symptoms You tested positive for influenza Treat with ibuprofen and Tylenol for fevers Prescriptions: New hydrocortisone acetate [Anucort-HC] 25 mg suppository 25 mg SC BID 5 Days Qty: 24 0RF No Action Plus 29 mg iron- 1 mg tablet 1 tab PO DAILY 90 Days Qty: 90 3RF sennosides [Senokot] 8.6 mg tablet 8.6 mg PO BID PRN (Reason: constipation) 14 Days Qty: 28 1RF
[2023-01-23 17:41] LABS: MANUAL DIFF FLAG NO
[2023-01-23 17:56] LABS: IDNOW Serial# 08D9AD1C; Strep A Nucleic Acid Negative (Negative)
[2023-01-23 17:58] LABS: Alanine Aminotransferase 16 U/L (0-31); Albumin Level 4.3 g/dL (3.5-5.0); Alkaline Phosphatase 102 U/L (39-117); Anion Gap 14 (12-20); Aspartate Amino Transferase 20 U/L (5-31); Bilirubin Direct 0.1 mg/dL (0.0-0.5); Bilirubin Total 0.4 mg/dL (0.0-1.0); Blood Urea Nitrogen 15 mg/dL (9-16); Calcium 9.2 mg/dL (8.4-10.2); Carbon Dioxide 24 mmol/L (22-29); Chloride 109 mmol/L (96-108); Creatinine Clr Calc Pharmacy 103.1; Estimated Glomerular Filt Rate > 60; Glucose Random 114 mg/dL (60-115); Potassium 3.8 mmol/L (3.3-5.1); Sodium 143 mmol/L (135-145); Total Protein 7.2 g/dL (6.5-8.0)
[2023-01-23 18:01] LABS: Basophils Percent Auto 0.9 % (0-2); Eosinophils Absolute Auto 0.1 X10*3/uL (0.0-0.4); Eosinophils Percent Auto 2.5 % (0-4); Hematocrit 39.7 % (37.0-47.0); Hemoglobin 12.8 g/dl (12.0-16.0); Imm Gran Abs Auto 0.06 X10*3/uL (0.00-0.03); Imm Gran Pct Auto 1.3 % (0.0-0.4); Lymphocytes Absolute Auto 0.7 X10*3/uL (1.2-4.9); Lymphocytes Percent Auto 15.8 % (20-40); Mean Corpuscular HGB Conc 32.2 g/dl (31.0-35.0); Mean Corpuscular Hemoglobin 25.3 pg (27.0-33.0); Mean Corpuscular Volume 78.5 fL (80.0-98.0); Mean Platelet Volume 9.8 fL (9.4-12.3); Monocytes Absolute Auto 0.4 X10*3/uL (0.1-1.2); Monocytes Percent Auto 9.2 % (2-11); Neutrophils Absolute Auto 3.2 x10*3/uL (2.0-8.3); Neutrophils Percent Auto 70.3 % (45-73); Platelet Count 244 X10*3/uL (160-400); Red Blood Count 5.06 X10*6/uL (4.20-5.50); White Blood Count 4.5 X10*3/uL (4.8-10.8)
[2023-01-23 18:25] LABS: Influenza A PCR POSITIVE (Negative); Influenza B PCR NEGATIVE (Negative); Resp Syncy Virus RNA Qual PCR NEGATIVE (Negative); SARS COV2 PCR INHOUSE NEGATIVE (Negative)
[2023-01-23 19:54] VITALS: BP 112/74; PULSE 77; RESP 18; TEMP 36.4; O2SAT 96
[2023-01-23 21:21] VITALS: BP 102/64; PULSE 99; RESP 19; TEMP 36.7; O2SAT 100
[2023-01-23 22:14] LABS: HCG Quantitative < 2 mIU/mL
== END 2023-01-23 21:23 | disposition home or self-care (01) ==
PROVIDERS: Physician Assistant; Emergency Provider Internal Medicine; PCP Hospitalist
DX: K62.89 Other specified diseases of anus and rectum (principal); J10.1 Influenza due to other identified influenza virus with other respiratory manifestations; K62.5 Hemorrhage of anus and rectum; Z11.52 Encounter for screening for COVID-19
CPT/HCPCS: 0241U; 71046; 80048; 80076; 84702; 85025; 87651; 99283

== ENCOUNTER 2023-02-08 09:19 | Emergency (ER) | payer OTHER, SELFPAY ==
[2023-02-08 09:39] VITALS: BP 120/74; PULSE 110; RESP 20; TEMP 37.2; O2SAT 97; BMI 32.8
--- NOTE | 2023-02-08 10:50 | ED.GENADULT ---
HPI - General Adult General Chief complaint: General Medical Stated complaint: Fever Body Aches Time Seen by Provider: 02/08/23 10:18 Source: patient Mode of arrival: ambulatory Limitations: no limitations History of Present Illness HPI narrative: 27-year-old female who recently gave this past October presents to the ED for body aches, headache, fever and breast tenderness since yesterday. Patient states she is and has good breast milk production. Patient denies any shortness of breath, chest pain, coughing, abdominal pain, or genitourinary symptoms. Related Data Previous Rx's Medication Instructions Recorded vitamins with calcium 1 tab PO DAILY 90 days #90 tabs 03/08/22 no.72-iron 29 mg-folic acid 1 mg tablet ( Plus) sennosides 8.6 mg tablet (Senokot) 8.6 mg PO BID PRN constipation 14 01/22/23 days #28 tabs hydrocortisone acetate 25 mg 25 mg MS BID 5 days #24 ea 01/23/23 rectal suppository (Anucort-HC) cephalexin 500 mg capsule 500 mg PO QID 7 days #28 caps 02/08/23 Allergies Allergy/AdvReac Type Severity Reaction Status Date / Time No Known Allergies Allergy Verified 02/08/23 09:38 Review of Systems Review of Systems: Fever, headaches, bilateral breast tenderness, Yes all other systems are reviewed and are negative [facility] Past Medical History Medical History Eczema No known health problems Social History Social History Housing: Apartment Alcohol intake: never Patient Tobacco Use Status: Never used Tobacco e-Cigarette/Vaping Use: Never Used Advance Directives: No Advance Directives Information Provided: No Current occupational status: employed Cognitive needs: No Hearing needs: No Vision needs: No Physical Exam ED Vital Signs: Vital Signs - 24 hr 02/08/23 09:39 Temperature 99 F Pulse Rate 110 H Respiratory Rate 20 Blood Pressure 120/74 Pulse Oximetry 97 Oxygen Delivery Method Room Air BMI result Body Mass Index 32.8 Const General: cooperative, healthy appearing, comfortable, no acute distress, well developed, alert, awake and Physically active Orientation/consciousness: oriented to person, oriented to place, oriented to time and patient oriented x3 HENMT Head: Yes normal to inspection, Yes No palpable skull fracture present, Yes normocephalic, Yes atraumatic and No abrasion Ears: hearing grossly normal bilaterally, external ears normal, TM's normal bilaterally, TM normal on the right, EAC's normal, mastoids normal and no periauricular adenopathy Throat: Yes posterior oropharynx normal, Yes tonsils normal and Yes uvula midline Eyes General: appearance normal, both eyes and all related structures Neck Neck: Yes normal visual inspection, Yes full ROM, Yes no lymphadenopathy, Yes no meningeal signs, Yes trachea midline, Yes supple, No anterior neck swelling and No tender Chest Chest palpation & inspection: normal inspection of the chest Chest/axillae images: 1. positive for erythema and tenderness. Soft to palpation. Negative fluctuance. Negative mass. Negative nipple discharge. Negative for axillary lymphadenopathy. 2. positive for erythema and tenderness. Soft to palpation. Negative fluctuance. Negative mass. Negative nipple discharge. Negative for axillary lymphadenopathy. Resp Effort & Inspection: normal respiratory effort and able to speak in complete sentences Auscultation: clear to auscultation bilaterally Cardio Jugular venous distension: no JVD Heart sounds: S1 normal heart sound present and S2 normal heart sound present GI Inspection: Yes normal to inspection Palpation (GI): Soft to palpation, not firm, nontender, no guarding and not rigid General: No CVA tenderness and Yes no CVA tenderness Back/Spine/Pelvis Back: no CVA tenderness, No CVA tenderness and No back tenderness Skin General skin exam: no rashes or lesions noted and elasticity normal Neuro General: oriented to person, oriented to place, oriented to time, patient oriented x3, gait normal, tone normal, moves all extremities, Normal light touch and pain sensation, no meningeal signs, no focal motor deficits, CN's II-XI intact bilaterally and normal sensation to monofilament Extrem General: Yes normal to inspection and Yes full ROM Psych Appearance: grossly normal, well kempt and not disheveled Medical Decision Making Medical Decision Making MDM Narrative: 27-year-old female presents ED for fever, aches, body aches, chills, and bilateral breast tenderness on palpation. Physical exam positive for right breast erythema with tenderness. Negative for fluctuance or hard mass on palpation. Negative for nipple discharge. SARS and strep pending. 11:11am: Patient negative for RSV, influenza, COVID, and strep. Will treat as mastitis. Not suspecting endometritis, retained products, or pneumonia. Differential Diagnosis Differential Diagnoses: The differential diagnosis associated with the presentation includes ( COVID, influenza, RSV, strep, mastitis) Lab Data MDM Lab Attestation statement: I reviewed the patient's lab results. Labs: Lab Results 02/08/23 02/08/23 Range/Units 09:59 10:36 Influenza Type A (PCR) NEGATIVE (Negative) Influenza Type B (PCR) NEGATIVE (Negative) RSV RNA Qual (PCR) NEGATIVE (Negative) SARS-CoV-2 RNA (RT-PCR) NEGATIVE (Negative) S. pyogenes GrpA KATIE Negative (Negative) Independent Historian Clinical information obtained from an independent historian. History obtained from or confirmed by: Other ( prior visits) External Record Review External record reviewed: Other ( prior visits) Prescription Management I considered prescription management with: Antibiotic Discharge Plan Discharge Clinical Impression: Mastitis Patient Disposition: Home, Self-Care Instructions: Mastitis (ED) Additional Instructions: please follow-up with your primary care provider and OBGYN. Return to the ED immediately for any abdominal pain, dysuria, hematuria, chest pain, shortness of breath, increased swelling of breast, increased redness, inability to produce milk, chest pain, shortness of breath, coughing up blood, or any other other concerning symptoms. Recommend continue . Warm compresses can be used to placed on breast. Prescriptions: New cephalexin 500 mg capsule 500 mg PO QID 7 Days Qty: 28 0RF No Action Plus 29 mg iron- 1 mg tablet 1 tab PO DAILY 90 Days Qty: 90 3RF hydrocortisone acetate [Anucort-HC] 25 mg suppository 25 mg MS BID 5 Days Qty: 24 0RF sennosides [Senokot] 8.6 mg tablet 8.6 mg PO BID PRN (Reason: constipation) 14 Days Qty: 28 1RF Interventions: ED Discharge Assessment Last Done: 02/08/23 12:55 Discharge Date/Time: 02/08/23 12:55 Print Language: Cameroonian
[2023-02-08 10:51] LABS: Influenza A PCR NEGATIVE (Negative); Influenza B PCR NEGATIVE (Negative); Resp Syncy Virus RNA Qual PCR NEGATIVE (Negative); SARS COV2 PCR INHOUSE NEGATIVE (Negative)
[2023-02-08 11:00] LABS: IDNOW Serial# 08D9AD1C; Strep A Nucleic Acid Negative (Negative)
== END 2023-02-08 12:55 | disposition home or self-care (01) ==
PROVIDERS: Physician Assistant; Emergency Provider Emergency Medicine
DX: N61.0 Mastitis without abscess (principal); R50.9 Fever, unspecified; R51.9 Headache, unspecified; Z20.822 Contact with and (suspected) exposure to COVID-19; Z20.828 Contact with and (suspected) exposure to other viral communicable diseases
CPT/HCPCS: 0241U; 87651; 99282; 99283

== ENCOUNTER 2023-02-09 00:46 | Emergency (ER) | payer OTHER, SELFPAY | END 2023-02-09 01:03 | disposition left against medical advice (07) | PROVIDERS: Emergency Provider Emergency Medicine; PCP Hospitalist | DX: R50.9 Fever, unspecified (principal); M79.10 Myalgia, unspecified site ==

== ENCOUNTER 2023-02-26 11:57 | Outpatient (REF) | payer OTHER, SELFPAY ==
[2023-02-26 13:38] LABS: Basophils Absolute Auto 0.1 X10*3/uL (0.0-0.2); Basophils Percent Auto 1.6 % (0-2); Eosinophils Absolute Auto 0.3 X10*3/uL (0.0-0.4); Eosinophils Percent Auto 8.1 % (0-4); Hematocrit 39.2 % (37.0-47.0); Hemoglobin 12.4 g/dl (12.0-16.0); Imm Gran Abs Auto 0.01 X10*3/uL (0.00-0.03); Imm Gran Pct Auto 0.3 % (0.0-0.4); Lymphocytes Absolute Auto 1.6 X10*3/uL (1.2-4.9); MANUAL DIFF FLAG SCAN; Mean Corpuscular HGB Conc 31.6 g/dl (31.0-35.0); Mean Corpuscular Hemoglobin 24.6 pg (27.0-33.0); Mean Corpuscular Volume 77.8 fL (80.0-98.0); Monocytes Absolute Auto 0.3 X10*3/uL (0.1-1.2); Monocytes Percent Auto 10.6 % (2-11); Neutrophils Absolute Auto 0.9 x10*3/uL (2.0-8.3); Neutrophils Percent Auto 28.4 % (45-73); Platelet Count 327 X10*3/uL (160-400); Red Blood Count 5.04 X10*6/uL (4.20-5.50); Red Cell Distribution Width 14.1 % (11.0-16.0); SCAN SMEAR FLAG 1; White Blood Count 3.1 X10*3/uL (4.8-10.8)
[2023-02-26 14:16] LABS: SLIDE REVIEW VERIFIED
[2023-02-26 14:24] LABS: Anion Gap 11 (12-20); Blood Urea Nitrogen 9 mg/dL (9-16); Calcium 9.7 mg/dL (8.4-10.2); Carbon Dioxide 29 mmol/L (22-29); Chloride 106 mmol/L (96-108); Estimated Glomerular Filt Rate > 60; Glucose Random 93 mg/dL (60-115); Sodium 142 mmol/L (135-145)
== END 2023-02-26 11:58 | disposition home or self-care (01) ==
LOC: HO.LAB 11:57
PROVIDERS: Family Medicine; PCP Hospitalist; Visit Provider Nurse Practitioner Family
DX: Z00.00 Encounter for general adult medical examination without abnormal findings (principal); K62.5 Hemorrhage of anus and rectum
CPT/HCPCS: 36415; 80048; 85025; 85027

== ENCOUNTER 2023-02-26 11:57 | Outpatient (AMB) | payer OTHER, SELFPAY ==
[2023-02-26 12:01] VITALS: BP 100/65; PULSE 89; BMI 32.5
--- NOTE | 2023-02-26 12:01 | MHC.OFFVIS ---
Intake Vital Signs 02/26/23 12:01 Height 5 ft 4 in Weight 189 lb 2.506 oz BMI 32.5 BP 100/65 Blood Pressure Location Lt brachial Position Sitting Pulse 89 Intake Visit Reasons: Hemorrhage of anus and rectum Intake Note: Patient presents to in office visit today as a new patient for rectal bleeding. CC: Patient c/o pain with BMs and rectal bleeding s/p giving on 11/08/22. Per patient rectal pain lingers after BMs, when stool comes out of the hole it hurts per Pt. Denies constipation, abdominal pain, N/V. 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 Patient reports rectal pain with bowel movements and blood after bowel movements since October. Patient states that she started with the symptoms right after delivering her daughter. Patient reports that she had no issues during . Recent blood work from January of 2023 showed no anemia. Patient reports that she is moving her bowels every 2-3 days. Usually patient reports that her stools are soft. Sometimes patient is afraid to push due to pain. Patient reports that pain usually lasts for 3-4 hours after bowel movement. Patient denies any family history of colorectal cancer. Tried Sitz baths with Epsom salts in the past and reports to be helpful. [facility] Medical History Eczema No known health problems Surgical History No pertinent past surgical history Social History Housing: Apartment Alcohol intake: never Patient Tobacco Use Status: Never used Tobacco e-Cigarette/Vaping Use: Never Used Current occupational status: employed Cognitive needs: No Hearing needs: No Vision needs: No Female Reproductive History Menstrual Age of Menarche: 14 Review of Systems Const Denies weight gain and Denies weight loss ENT Reports no additional complaints, Denies dysphagia and Denies odynophagia Card Reports no additional complaints Resp Reports no additional complaints GI Denies abdominal pain, Denies belching, Denies melena, Denies bloating, Denies change in bowel habits, Denies dysphagia, Denies excessive flatus, Denies dyspepsia, Denies heartburn, Denies diarrhea, Denies loose stools, Denies nausea, Denies odynophagia and Denies vomiting Musc Reports no additional complaints Neuro Reports no additional complaints Psych Reports no additional complaints Endo Reports no additional complaints Physical Exam Vital Signs: Last Vital Signs Pulse 89 02/26/23 12:01 BP 100/65 02/26/23 12:01 BMI result Body Mass Index 32.5 Const General: healthy appearing, no acute distress and well developed Nutritional Appearance: well nourished Orientation/consciousness: patient oriented x3 HEENT Head: Yes normal to inspection, Yes normocephalic and Yes atraumatic Face and sinus: Yes normal facial exam Mouth: Normal oral and palatal mucosa present Throat: Yes posterior oropharynx normal, Yes tonsils normal and Yes uvula midline Eyes General: appearance normal, both eyes and all related structures Neck Neck: Yes normal visual inspection, Yes full ROM and Yes trachea midline Thyroid: Thyroid normal Resp Effort & Inspection: normal respiratory effort, able to speak in complete sentences, no tracheal deviation and symmetric chest movement Auscultation: clear to auscultation bilaterally Cardio Rate: regular rate GI Inspection: Yes normal to inspection, No distended and Yes obesity Palpation (GI): Soft to palpation, not firm, nontender and No hepatosplenomegaly present Auscultation: normal bowel sounds Rectal Exam - Female: normal sphincter tone General: Yes no CVA tenderness Back/Spine/Pelvis Back: no CVA tenderness Skin General skin exam: elasticity normal, turgor normal and dry skin Neuro General: patient oriented x3 Psych Appearance: grossly normal Mental Status: mental status grossly normal Assessment & Plan Assessment & Plan (1) Rectal bleeding: Code(s): K62.5 - Hemorrhage of anus and rectum Plan Will send patient script for Proctosol. Patient had last bowel movement couple days ago. Rectal exam done, no fissure, hemorrhoids, stool in the rectum hard noted. Will send her script for stool softener. Patient will continue Sitz baths. Will repeat blood work today. I will see her in 3 months, sooner on as needed basis. Patient is agreeable to this plan and verbalizes understanding of instructions. She was given the opportunity to ask questions and all questions answered. Orders: Orders Complete Blood Count no Diff Today K62.5 - Hemorrhage of anus and rectum Medications: New docusate sodium 100 mg PO BEDTIME 90 caps 3RF K59.00 - Constipation, unspecified hydrocortisone 2.5% (Proctosol HC) 1 appl [place] BID-QID PRN 30 grams 2RF hemorrhoids K64.9 - Unspecified hemorrhoids Coding Level of Care Code New Pt Level 3 (40734) Diagnoses Rectal bleeding K62.5 Time Spent (min) 40 Comment 30 minutes spent with patient and additional 10 minutes spent reviewing her records
== END 2023-02-26 12:28 | disposition home or self-care (01) ==
PROVIDERS: PCP Hospitalist; Visit Provider Nurse Practitioner Family
DX: K62.5 Hemorrhage of anus and rectum (principal)
CPT/HCPCS: 99203

== ENCOUNTER 2023-03-06 07:53 | Outpatient (AMB) | payer OTHER, SELFPAY ==
--- NOTE | 2023-03-06 07:58 | MHC.OFFVIS ---
Intake Vital Signs 03/06/23 07:59 Height 5 ft 4 in Weight 187 lb 6.287 oz BMI 32.2 BP 116/70 Intake Visit Reasons: COLPO results Allergies No Known Allergies Allergy (Verified 02/26/23 12:06) HPI HPI Comments History of Present Illness Details Presenting post colpo for follow-up. The patient is doing well with no complaints. The pathology showed the following: A. Endocervix, curettage: Scant fragments of squamous epithelium and endocervical mucosa within normal limits. B. Cervix, 1:00, biopsy: Mildly inflamed squamous mucosa; otherwise within normal limits; no endocervical epithelium seen. C. Cervix, 3:00, biopsy: Mildly inflamed cervical transformation zone mucosa with reactive changes. D. Cervix, 11:00, biopsy: Mildly inflamed cervical transformation zone mucosa with reactive changes. E. Cervix, 12:00, biopsy: Mildly inflamed cervical transformation zone mucosa with reactive changes. [facility] Medical History Eczema No known health problems Surgical History No pertinent past surgical history Social History Housing: Apartment Alcohol intake: never Patient Tobacco Use Status: Never used Tobacco e-Cigarette/Vaping Use: Never Used Current occupational status: employed Cognitive needs: No Hearing needs: No Vision needs: No Female Reproductive History Menstrual Age of Menarche: 14 Review of Systems Const All systems reviewed & are unremarkable except as noted in HPI and below Reports as per HPI and Reports no additional complaints GI Reports no additional complaints Reports no additional complaints Physical Exam Vital Signs: Last Vital Signs BP 116/70 03/06/23 07:59 BMI result Body Mass Index 32.2 Assessment & Plan Assessment & Plan (1) ASCUS with positive high risk HPV cervical: Code(s): R87.610 - Atypical squamous cells of undetermined significance on cytologic smear of cervix (ASC-US); R87.810 - Cervical high risk human papillomavirus (HPV) DNA test positive Plan: Discussed with the patient the pathology results of the colposcopy biopsies & endocervical curettage ( negative). Discussed with the patient the sensitivity specificity, positive and negative predictive value in detecting cervical cancer in addition discussed the regression, persistence and progression rates. Recommended co-testing in 12 months, if cytology and or HPV are abnormal will proceed was colposcopy biopsy and endocervical curettage. Instructions given to the patient to schedule a co test appointment in 1 year. All questions answered the patient verbalized understanding. Coding Level of Care Code Est Pt Level 3 (38772) Diagnoses ASCUS with positive high risk HPV cervical R87.610; R87.810
[2023-03-06 07:59] VITALS: BP 116/70; BMI 32.2
== END 2023-03-06 08:14 | disposition home or self-care (01) ==
PROVIDERS: PCP Hospitalist; Visit Provider Obstetrics & Gynecology
DX: R87.610 Atypical squamous cells of undetermined significance on cytologic smear of cervix (ASC-US) (principal); R87.810 Cervical high risk human papillomavirus (HPV) DNA test positive
CPT/HCPCS: 99213

== ENCOUNTER → 2023-03-06 07:53 | Outpatient (BNVA) | payer OTHER, SELFPAY | PROVIDERS: PCP Hospitalist; Visit Provider Obstetrics & Gynecology ==

== ENCOUNTER 2023-03-12 09:01 | Outpatient (AMB) | payer OTHER, SELFPAY ==
--- NOTE | 2023-03-12 09:09 | A.OFFVIS_ITS ---
Intake Vital Signs 03/12/23 09:12 Height 5 ft 4 in Weight 184 lb BMI 31.6 BP 99/60 Blood Pressure Location Lt brachial Position Sitting Pulse 73 Intake Visit Reasons: pt req appointment for GI complications Intake Note: Patient follow up for rectal bleeding. Patient cc: rectal bleeding with rectal pain, abdominal pain and constipation. Aged Or Disabled Care Worker Required: No Accompanied by: Self / Same As Patient Allergies No Known Allergies Allergy (Verified 03/12/23 09:07) HPI pt req appointment for GI complications HPI Details LAST VISIT Rectal bleeding Plan Will send patient script for Proctosol. Patient had last bowel movement couple days ago. Rectal exam done, no fissure, hemorrhoids, stool in the rectum hard noted. Will send her script for stool softener. Patient will continue Sitz baths. Will repeat blood work today. I will see her in 3 months, sooner on as needed basis. Patient is agreeable to this plan and verbalizes understanding of instructions. She was given the opportunity to ask questions and all questions answered. Orders Orders Complete Blood Count no Diff Today K62.5 Medications New docusate sodium 100 mg PO BEDTIME 90 caps 3RF K59.00 hydrocortisone 2.5% (Proctosol HC) 1 appl [place] BID-QID PRN 30 grams 2RF hemor rhoids K64.9 TODAY'S VISIT Laboratory Tests 02/26/23 12:40 RBC 5.04 Hgb 12.4 Hct 39.2 MCV 77.8 L MCH 24.6 L Patient is here today for requested visit. Patient continues to have rectal pain every time she has a bowel movement. Patient does admit that her bowels are hard, takes stool softeners every day. Patient reports that she drinks plenty of fluids. Patient reports blood clots with each bowel movement. Patient reports that she will have rectal pain even when she does not have a bowel movement. Reports left lower quadrant discomfort, abdominal bloating. Patient denies any dyspepsia, dysphagia or odynophagia. Denies any issues with anesthesia in the past. No history of sleep apnea. Not on any anticoagulation medication. No respiratory or cardiac symptoms. [facility] Medical History Eczema No known health problems Surgical History No pertinent past surgical history Social History Housing: Apartment Alcohol intake: never Patient Tobacco Use Status: Never used Tobacco e-Cigarette/Vaping Use: Never Used Current occupational status: employed Cognitive needs: No Hearing needs: No Vision needs: No Female Reproductive History Menstrual Age of Menarche: 14 Review of Systems Const Denies weight gain and Denies weight loss ENT Reports no additional complaints, Denies dysphagia and Denies odynophagia Card Reports no additional complaints Resp Reports no additional complaints GI Reports abdominal pain, Denies belching, Denies melena, Denies bloating, Reports hematochezia, Denies change in bowel habits, Reports constipation, Denies dysphagia, Denies excessive flatus, Denies dyspepsia, Denies heartburn, Denies diarrhea, Denies loose stools, Denies nausea, Denies odynophagia, Denies vomiting and Reports other (Rectal pain) Reports no additional complaints Musc Reports no additional complaints Neuro Reports no additional complaints Psych Reports no additional complaints Endo Reports no additional complaints Physical Exam Vital Signs: Last Vital Signs Pulse 73 03/12/23 09:12 BP 99/60 03/12/23 09:12 BMI result Body Mass Index 31.6 Const General: healthy appearing, no acute distress and well developed Nutritional Appearance: well nourished Orientation/consciousness: patient oriented x3 Resp Effort & Inspection: normal respiratory effort, able to speak in complete sentences, no tracheal deviation and symmetric chest movement Auscultation: clear to auscultation bilaterally Cardio Rate: regular rate GI Inspection: Yes normal to inspection and No distended Palpation (GI): Soft to palpation, not firm, nontender and No hepatosplenomegaly present Auscultation: normal bowel sounds General: Yes no CVA tenderness Back/Spine/Pelvis Back: no CVA tenderness Skin General skin exam: elasticity normal, turgor normal and dry skin Neuro General: patient oriented x3 Psych Appearance: grossly normal Mental Status: mental status grossly normal Assessment & Plan Assessment & Plan (1) Rectal bleeding: Code(s): K62.5 - Hemorrhage of anus and rectum (2) Internal hemorrhoids: Code(s): K64.8 - Other hemorrhoids (3) Rectal pain: Code(s): K62.89 - Other specified diseases of anus and rectum Plan Patient continues to have rectal pain, admits to constipation. Patient can take 2 stool softeners in the morning and Dulcolax tablets in the evening. Patient will be sent for colonoscopy to rule out large polyp in her rectum versus hemorrhoids causing her bleeding. No family history of colorectal cancer. No issues with anesthesia in the past. No history of sleep apnea. Not on any anticoagulation medication. No cardiac or respiratory symptoms. What to expect before during and after procedure discussed with patient. Clear liquid diet and good bowel prep stressed with patient. I will see her after the procedure, sooner on as needed basis. Patient is agreeable to this plan and verbalizes understanding of instructions. She was given the opportunity to ask questions and all questions answered. Thank you for allowing me to participate in her care Medications: New bisacodyl (Dulcolax (bisacodyl)) 10 mg (2 x 5 mg) PO BEDTIME 180 tabs 4RF polyethylene glycol 3350 (Miralax) As directed by gastroenterology department at [facility] 238 grams PO ONCE 238 grams 0RF Z12.11 - Encounter for screening for malignant neoplasm of colon Changed From docusate sodium 100 mg PO BEDTIME 90 caps 3RF K59.00 - Constipation, unspecified To docusate sodium 200 mg (2 x 100 mg) PO BEDTIME 90 caps 3RF K59.00 - Constipation, unspecified Coding Level of Care Code Est Pt Level 3 (41211) Diagnoses Rectal bleeding K62.5 Internal hemorrhoids K64.8 Rectal pain K62.89 Time Spent (min) 30 Comment 20 minutes spent with patient and additional 10 minutes spent reviewing her records
[2023-03-12 09:12] VITALS: BP 99/60; PULSE 73; BMI 31.6
== END 2023-03-12 09:36 | disposition home or self-care (01) ==
PROVIDERS: PCP Hospitalist; Visit Provider Nurse Practitioner Family
DX: K62.5 Hemorrhage of anus and rectum (principal); K64.8 Other hemorrhoids; K62.89 Other specified diseases of anus and rectum
CPT/HCPCS: 99213

== ENCOUNTER → 2023-03-12 09:01 | Outpatient (BNVA) | payer OTHER, SELFPAY | PROVIDERS: PCP Hospitalist; Visit Provider Nurse Practitioner Family ==

== ENCOUNTER 2023-03-19 07:02 | Day surgery (SDC) | payer SELFPAY ==
--- NOTE | 2023-03-18 10:00 | HO.ANESPROP2 ---
HPI - Anesthesia Eval Consult details Narrative: 28yo F for Colonoscopy PMFSH Active Problems Active Problems: All Active Problems (Updated 02/09/23 @ 00:01 by Brianna Yo) Rectal bleeding (Acute) Microscopic hematuria (Acute) Internal hemorrhoids (Acute) Vaginal discomfort (Acute) ASCUS with positive high risk HPV cervical (Acute) Vaginal itching (Acute) Positive urine test (Acute) Acute sinusitis (Acute) Acute left otitis media (Acute) Back pain (Acute) Periorbital dermatitis (Acute) Abnormal physical finding (Acute) control counseling (Acute) Cervical cancer screening (Acute) Well woman exam with routine gynecological exam (Acute) Facial eczema (Acute) Anxiety about health (Acute) Atypical chest pain (Acute) Past Medical History Medical History Eczema No known health problems Surgical History Surgical History No pertinent past surgical history Social History Social History Housing: Apartment Alcohol intake: never Patient Tobacco Use Status: Never used Tobacco e-Cigarette/Vaping Use: Never Used Current occupational status: employed Cognitive needs: No Hearing needs: No Vision needs: No Meds Allergies Allergy/AdvReac Type Severity Reaction Status Date / Time No Known Allergies Allergy Verified 03/12/23 09:07 Assessment and Plan Assessment Anesthesia Assessment: Chart Reviewed
[2023-03-19 08:00] VITALS: BMI 31.5
--- NOTE | 2023-03-19 08:09 | MHC.SHP ---
Pre-Procedural Eval Section A - 24 Hr Update-Section A only Date of Service: 03/19/23 Section B - Complete if H&P > 30 days Chief Complaint: Other specified diseases of anus and rectum Details of Present Illness: rectal pain and bleeding Relevant Family History (Specify if Yes): No Relevant Social History: None Present Medications: see Short Stay Collaborative assessment Medical History: Significant History (Eczema) History of Previous Operations: No relevant previous surgery Allergies: Allergies Allergy/AdvReac Type Severity Reaction Status Date / Time No Known Allergies Allergy Verified 03/12/23 09:07 Review of Systems Sugical H&P ROS: Negative: Constitution, Cardiovascular, Respiratory, Neurological, Psychiatric, Hem-Onc, Allergic/Immunologic, Gastrointestinal, Genitourinary, Musculoskeletal, Integumentary, Endocrine and Eyes/Ears/Nose/Throat Exam Surgical H&P Exam: Normal: HEENT, Normal: Heart, Normal: Lungs, Normal: Extremities, Normal: Abdomen, Normal: Skin and Normal: Neurological Plan Diagnosis/Plan: Unchanged I have reviewed the history and physical and performed a pertinent physical examination on my patient. No changes have occurred unless specified. Time Spent With Patient Time: Total time managing care of this patient today ____ minutes.
--- NOTE | 2023-03-19 08:10 | P.OP_ITS ---
Operative Note Operative Note Date of Service: 03/19/23 Narrative: Operative Information Procedure Description: Colonoscopy Indication: rectal pain and discomfort Anesthesia: MAC COLONOSCOPY Instrument: Olympus variable stiffness pediatric scope 190L Colonoscopy Monitoring: Vital signs and clinical assessment, continuous EKG monitoring, Pulse oximetry, Carbon Dioxide monitoring and blood pressure monitoring were done throughout the procedure. Colon withdrawal time was 8 minutes. Procedure: The patient was placed in the left lateral decubitis position and pre-procedure medications were administered. After a digital rectal examination of the ano-rectum, the video colonoscope was inserted into the rectum and advanced through the colon to the cecum/TI. The colonoscope was slowly withdrawn in a retrograde panoramic fashion and the colon mucosa was carefully examined including a retroflexed view of the rectum. Findings and interventions are described below. Procedure Difficulty: easy Findings: Terminal Ileum-normal Cecum:normal Right sided retroflexion- normal Ascending Colon: normal Transverse Colon -normal Descending Colon:normal Sigmoid Colon: normal Rectum: Retroflexion with small internal hemorrhoids, grade I Anorectum - normal Colon preparation: [place] Bowel Preparation Scale Right colon; 2 Transverse colon: 3 Left colon; 3 (0 = Unprepared colon segment with mucosa not seen due to solid stool that cannot be cleared. 1 = Portion of mucosa of the colon segment seen, but other areas of the colon segment not well seen due to staining, residual stool and/or opaque liquid. 2 = Minor amount of residual staining, small fragments of stool and/or opaque liquid, but mucosa of colon segment seen well. 3 = Entire mucosa of colon segment seen well with no residual staining, small fragments of stool or opaque liquid) Impression and Post Procedure Diagnosis: internal hemorrhoids Plan: High fiber diet leaflet Avoid straining at stool, epsom salts and sitz bath, anusol supps or cream--if ongoing pain can consider rectiv, Repeat Colonoscopy aged 45 yrs or earlier if clinically indicated Above findings were reviewed with the patient and relevant handouts were provided if indicated.
[2023-03-19 08:16] VITALS: BP 121/76; PULSE 88; RESP 16; TEMP 36.2; O2SAT 97
[2023-03-19] MEDS: Lactated Ringers 1,000 ML 100 ML IVCONT (08:25)
--- NOTE | 2023-03-19 08:34 | HO.ANESPROP2 ---
[facility] Active Problems Active Problems: All Active Problems (Updated 03/19/23 @ 07:59 by Cassie Aquino RN) Rectal bleeding (Acute) Microscopic hematuria (Acute) Internal hemorrhoids (Acute) Vaginal discomfort (Acute) ASCUS with positive high risk HPV cervical (Acute) Vaginal itching (Acute) Positive urine test (Acute) Acute sinusitis (Acute) Acute left otitis media (Acute) Back pain (Acute) Periorbital dermatitis (Acute) Abnormal physical finding (Acute) control counseling (Acute) Cervical cancer screening (Acute) Well woman exam with routine gynecological exam (Acute) Facial eczema (Acute) Anxiety about health (Acute) Atypical chest pain (Acute) Past Medical History Medical History History of fracture of arm Eczema No known health problems Patient : No (breat feeding) Family History Family history of problems with anesthesia: No Surgical History Surgical History No pertinent past surgical history History of Problems with Anesthesia: No Social History Social History Housing: Apartment Alcohol intake: never Patient Tobacco Use Status: Never used Tobacco e-Cigarette/Vaping Use: Never Used Current occupational status: employed Cognitive needs: No Hearing needs: No Vision needs: No Meds Allergies Allergy/AdvReac Type Severity Reaction Status Date / Time No Known Allergies Allergy Verified 03/12/23 09:07 Active Medications: Current Medications Lactated Ringer's (Lr) 1,000 mls @ 100 mls/hr IVCONT .Q10H SHREYA Last Admin: 03/19/23 08:25 Dose: 100 mls/hr Exam Height,Weight and Vital Signs: Height 5 ft 4 in Weight 83.121 kg Last Vital Signs Temp 97.1 F 03/19/23 08:16 Pulse 88 03/19/23 08:16 Resp 16 03/19/23 08:16 BP 121/76 03/19/23 08:16 Pulse Ox 97 03/19/23 08:16 O2 Del Method Room Air 03/19/23 08:16 Airway Mallampati Class: I TM Dist: >3cm Heart: RRR Lungs: CTA Assessment and Plan Final Anesthetic Review Family History of Problems with Anesthesia: No History of Problems with Anesthesia: No NPO: Yes ASA Class: I Final Preanesthetic Review: Meds/Allgs Chart Reviewed, Consent Obtained/Reviewed and Anes Risks/Benef Reviewed Patient Risk: Low Procedure Risk: Low Anesthetic Plan Anesthetic Plan: MAC: Disposition: Standard PACU
[2023-03-19 09:03] LABS: UPreg QC Valid YES; Urine Pregnancy NEGATIVE (NEGATIVE)
--- NOTE | 2023-03-19 09:45 | PC.NURSE ---
PATIENT IS BREAST FEEDING. TO PUMP AND DUMP STARTING FROM 100AM TODAY FOR 24 HOURS. PATIENT AWARE. OK TO USE BREAST MILK AT HOME ALREADY PUMPED. PER ANESTHESIA
[2023-03-19 10:07] VITALS: BP 102/57; PULSE 80; RESP 16; TEMP 36.1; O2SAT 99
[2023-03-19 10:22] VITALS: BP 112/80; PULSE 77; RESP 14; TEMP 36.4; O2SAT 99
[2023-03-19 10:37] VITALS: BP 110/74; PULSE 74; RESP 16; TEMP 36.4; O2SAT 100
--- NOTE | 2023-03-19 10:40 | HO.POSTANES ---
Post Anesthesia Evaluation Post Anesthesia Evaluation Date of Service: 03/19/23 Vital Signs: Vital Signs Temp Pulse Resp BP Pulse Ox O2 Del Method 03/19/23 10:22 97.6 F 77 14 112/80 99 Room Air 03/19/23 10:07 97 F 80 16 102/57 L 99 Room Air 03/19/23 08:16 97.1 F 88 16 121/76 97 Room Air Anesthesia: Monitored Mental Status: Awake Pain Control: Satisfactory Nausea/Vomiting: None Hydration: Adequate Anesthesia-Related Issues: No Anes. Related Issues
--- NOTE | 2023-03-19 10:43 | HO.ANESPROP2 ---
[facility] Active Problems Active Problems: All Active Problems Rectal bleeding (Acute) Microscopic hematuria (Acute) Internal hemorrhoids (Acute) Vaginal discomfort (Acute) ASCUS with positive high risk HPV cervical (Acute) Vaginal itching (Acute) Positive urine test (Acute) Acute sinusitis (Acute) Acute left otitis media (Acute) Back pain (Acute) Periorbital dermatitis (Acute) Abnormal physical finding (Acute) control counseling (Acute) Cervical cancer screening (Acute) Well woman exam with routine gynecological exam (Acute) Facial eczema (Acute) Anxiety about health (Acute) Atypical chest pain (Acute) Past Medical History Medical History History of fracture of arm Eczema No known health problems Family History Family history of problems with anesthesia: No Surgical History Surgical History No pertinent past surgical history History of Problems with Anesthesia: No Social History Social History Housing: Apartment Alcohol intake: never Patient Tobacco Use Status: Never used Tobacco e-Cigarette/Vaping Use: Never Used Use of substances other than those prescribed or required for medical reasons: No Are you DNR?: No Advance Directives: No Advance Directives Information Provided: Yes Patient : No (breat feeding) Current occupational status: employed Cognitive needs: No Hearing needs: No Vision needs: No Meds Allergies Allergy/AdvReac Type Severity Reaction Status Date / Time No Known Allergies Allergy Verified 03/12/23 09:07 Active Medications: Current Medications Lactated Ringer's (Lr) 1,000 mls @ 100 mls/hr IVCONT .Q10H SHREYA Last Admin: 03/19/23 08:25 Dose: 100 mls/hr Exam Height,Weight and Vital Signs: Height 5 ft 4 in Weight 83.121 kg Last Vital Signs Temp 97.6 F 03/19/23 10:22 Pulse 77 03/19/23 10:22 Resp 14 03/19/23 10:22 BP 112/80 03/19/23 10:22 Pulse Ox 99 03/19/23 10:22 O2 Del Method Room Air 03/19/23 10:22 Pertinent Lab Results Pertinent Lab Results: Laboratory Tests 03/19/23 08:52 Urine Test NEGATIVE Airway Mallampati Class: IV TM Dist: >3cm Neck ROM: Full Heart: RRR Lungs: CTA Other: pt. has small chin,,protruding upper teeth,bid tongue. She needs intubation ,Dr. Brownlee requested it too. Assessment and Plan Assessment Anesthesia Assessment: Anesthesia Plan Discussed and Smoking Cess. Discussed Final Anesthetic Review Family History of Problems with Anesthesia: No History of Problems with Anesthesia: No NPO: Yes ASA Class: III Final Preanesthetic Review: Meds/Allgs Chart Reviewed, Consent Obtained/Reviewed and Anes Risks/Benef Reviewed Patient Risk: Intermediate Procedure Risk: Low Anesthetic Plan Anesthetic Plan: GA Disposition: Standard PACU
== END 2023-03-19 11:18 | disposition home or self-care (01) ==
PROVIDERS: Nurse Practitioner; PCP Hospitalist; Visit Provider Internal Medicine Gastroenterology
PROC: 0DJD8ZZ Inspection of Lower Intestinal Tract, Via Natural or Artificial Opening Endoscopic (ICD-10-PCS; CPT 45378; principal; 2023-03-19 09:00)
DX: K62.9 Disease of anus and rectum, unspecified (principal); K64.0 First degree hemorrhoids; K59.00 Constipation, unspecified; K62.5 Hemorrhage of anus and rectum
CPT/HCPCS: 45378; 81025; J2704

== ENCOUNTER → 2023-03-19 07:02 | Outpatient (BNV) | payer SELFPAY | PROVIDERS: PCP Hospitalist; Visit Provider Internal Medicine Gastroenterology | DX: K62.89 Other specified diseases of anus and rectum (principal); K64.0 First degree hemorrhoids | CPT/HCPCS: 45378 ==

== ENCOUNTER 2023-11-27 14:14 | Emergency (ER) | payer OTHER, SELFPAY ==
--- NOTE | ~2023-11-27 | CT_ITS ---
EXAMINATION: CT CERVICAL SPINE WITHOUT CONTRAST CLINICAL INFORMATION: Pain after trauma COMPARISON: None available. TECHNIQUE: Thin section axial imaging with sagittal and coronal reformats. This CT examination was performed using dose optimization techniques as appropriate, variously including the following: *Automated exposure control *Adjustment of mA and/or kV according to patient size (this includes techniques or standardized protocols for targeted exams where dose is matched to indication/reason for exam; i.e. extremities or head) *Use of iterative reconstruction technique DLP: 403 mGy-cm FINDINGS: No fracture or destructive lesion or alignment abnormality. Prevertebral soft tissues normal. No encroachment on the spinal canal. CT/CT cervical spine wo IV con IMPRESSION: Unremarkable examination. Fleischner guidelines were followed. Electronically signed by: Marlon Carranza MD 11/27/2023 04:32 PM EDT
--- NOTE | ~2023-11-27 | CT_ITS ---
EXAMINATION: CT HEAD WITHOUT CONTRAST CLINICAL INFORMATION: Head strike. Head pain. COMPARISON: None available. TECHNIQUE: Contiguous axial imaging was performed from the skull base to vertex without intravenous administration of contrast. This CT examination was performed using dose optimization techniques as appropriate, variously including the following: *Automated exposure control *Adjustment of mA and/or kV according to patient size (this includes techniques or standardized protocols for targeted exams where dose is matched to indication/reason for exam; i.e. extremities or head) *Use of iterative reconstruction technique DLP: 615 mGy-cm FINDINGS: No intra or extra-axial fluid collection, hemorrhage, mass, or mass effect. Calvarium is intact. Mild lobular mucoperiosteal thickening is observed within the lateral maxillary sinuses. There is mild mucosal thickening within the anterior ethmoid sinuses. CT/CT head/brain wo IV con IMPRESSION: No acute intracranial pathology. Electronically signed by: Marlon Carranza MD 11/27/2023 03:13 PM EDT
[2023-11-27 14:21] VITALS: BP 109/75; PULSE 75; RESP 18; TEMP 36.6; O2SAT 98; BMI 29.7
--- NOTE | 2023-11-27 14:29 | ED_ITS ---
HPI - Wound/Laceration General Chief Complaint: Wound/Laceration Stated Complaint: forehead inj Time Seen by Provider: 11/27/23 17:21 Source: patient and family (patient's mother) Mode of arrival: ambulatory Limitations: no limitations History of Present Illness ED Provider: Jess Momin PA-C HPI narrative: Patient is a 28 year old assigned female at with a history of anxiety and eczema presenting to the emergency department today with a forehead laceration. Patient states that she tripped and fell, hitting her head on a protruding nail from a windowsill. Patient denies any loss of consciousness with the incident, dizziness, lightheadedness, abdominal pain, nausea, vomiting, fever, chills, blurry vision, double vision, loss of vision, chest pain, difficulty breathing, shortness of breath, back pain, night sweats, pain with urination, increased urinary frequency, increased urinary urgency, blood in her urine or stool, syncope or a near syncopal episode, bowel incontinence, bladder incontinence, or any other complaints at this time. Location: face Place: home Patient tetanus UTD: No Context: accidental Associated symptoms: pain Related Data Previous Rx's ?Medication ?Instructions ?Recorded vitamins with calcium 1 tab PO DAILY 90 days #90 tabs 03/08/22 no.72-iron 29 mg-folic acid 1 mg tablet ( Plus) sennosides 8.6 mg tablet (Senokot) 8.6 mg PO BID PRN constipation 14 01/22/23 days #28 tabs hydrocortisone 2.5 % topical cream 1 appl VA BID-QID PRN hemorrhoids 02/26/23 with perineal applicator #30 grams (Proctosol HC) bisacodyl 5 mg tablet,delayed 10 mg (2 x 5 mg) PO BEDTIME #180 03/12/23 release (Dulcolax (bisacodyl)) tabs docusate sodium 100 mg capsule 200 mg (2 x 100 mg) PO BEDTIME #90 03/12/23 caps polyethylene glycol 3350 17 238 g PO ONCE #238 grams 03/12/23 gram/dose oral powder (Miralax) cephalexin 500 mg capsule 500 mg PO Q6H 7 days #28 caps 11/27/23 Allergies Allergy/AdvReac Type Severity Reaction Status Date / Time No Known Allergies Allergy Verified 11/27/23 14:23 Review of Systems 2 Constitutional: Constitutional: Reports no additional constitutional complaints, Denies chills, Denies fever(s) and Denies night sweats Eyes: Eyes: Reports no additional eye complaints, Denies blurry vision, Denies change in vision, Denies diplopia, Denies eye discharge, Denies loss of vision and Denies eye pain ENT: Denies dizziness Comments: forehead laceration Cardiovascular: Cardiovascular: Reports no additional cardiovascular complaints, Denies chest pain, Denies lightheadedness, Denies Loss of Consciousness and Denies dyspnea Respiratory: Respiratory: Reports no additional respiratory complaints and Denies dyspnea Gastrointestinal: Gastrointestinal: Reports no additional gastrointestinal complaints, Denies abdominal pain, Denies melena, Denies hematochezia, Denies change in bowel habits and Denies change in stool character Genitourinary: Genitourinary: Denies hematuria, Denies urinary frequency, Denies dysuria, Denies urinary incontinence, Denies urinary hesitancy and Denies urinary urgency Musculoskeletal: Musculoskeletal: Reports no additional musculoskeletal complaints, Denies numbness and Denies tingling Neurologic: Denies dizziness, Denies loss of vision, Denies numbness and Denies tingling Psychiatric: Psychiatric: Reports no additional psychiatric complaints Endocrine: Endocrine: Reports no additional endocrine complaints Hematologic/Lymphatic: Hematologic/Lymphatic: Reports no additional hematologic/lymphatic complaints Allergic/Immunologic: Allergic/Immunologic: Reports no additional allergic/immunologic complaints PMFSH Past Medical History Attestation statement: The following information was validated with the patient. (all information validated with the patient's mother) Source: old records reviewed, obtained from family (patient's mother provided additional history and confirmed the history provided by the patient.) and nursing notes reviewed Medical History History of fracture of arm Eczema No known health problems Surgical History No pertinent past surgical history Social History Social History Housing: Apartment Alcohol intake: never Patient Tobacco Use Status: Never used Tobacco e-Cigarette/Vaping Use: Never Used Advance Directives: No Advance Directives Information Provided: No Current occupational status: employed Cognitive needs: No Hearing needs: No Vision needs: No Physical Exam 2 Vital Signs: Vital Signs: Last Vital Signs Temp 98 F 11/27/23 18:55 Pulse 75 11/27/23 18:55 Resp 18 11/27/23 18:55 BP 109/75 11/27/23 18:55 Pulse Ox 98 11/27/23 18:55 O2 Del Method Room Air 11/27/23 18:55 BMI result Body Mass Index 29.7 Const: General: cooperative, no acute distress, alert and awake Nutritional Appearance: well nourished Orientation/consciousness: patient oriented x3 Limitations: no limitations HEENT: Ears: hearing grossly normal bilaterally and external ears normal G eneral nose exam: Normal external nose present, no nasal discharge noted and no epistaxis Face images: 1. 3cm laceration - no active bleeding Mouth: Normal oral and palatal mucosa present, no drooling and no muffled voice Eyes: General: appearance normal, both eyes and all related structures P eriorbital: periorbital findings normal Eyelids: Yes eyelids normal C onjunctivae: conjunctivae normal Pupils: Equal, round and reactive pupils present EOM: EOMs intact bilaterally Neck: Neck: Yes normal visual inspection, Yes full ROM and Yes no lymphadenopathy Chest: Chest palpation & inspection: normal inspection of the chest Resp: Effort & Inspection: normal respiratory effort and able to speak in complete sentences GI: Inspection: Yes normal to inspection Neuro: General: patient oriented x3 and moves all extremities Cranial nerves: Yes Equal, round and reactive pupils present Cognition (Neuro): n ormal cognition Extrem: General: Yes normal to inspection, Yes full ROM and Yes capillary refill normal Psych: Appearance: grossly normal Mental Status: mental status grossly normal Affect: normal affect Attitude: cooperative Thought process: N ormal thought process present Thought content: Normal thought content present Insight: Good insight present (Psych) Course Course Course Narrative: This is a Rapid Medical Examination (RME) performed by Rosalina Burnham PA-C in triage. Full HPI, ROS, assessment and treatment plan per primary provider in the Main ED. 28 yo female here for eval of head laceration after tripping and hitting the front of her head on a nail that was poking out from a window seal prior to arrival. unsure of tetanus. no LOC. no thinners. + neuro intact. 1.5 lac to left forehead along hairline, bleeding controlled. Plan: ct, lac repair, +/- tdap booster Medications Administered Discontinued Medications Generic Name Dose Route Start Last Admin Trade Name Tomi PRN Reason Stop Dose Admin Diphtheria/Tetanus/Acell Pertussis 0.5 ml 11/27/23 17:27 11/27/23 17:44 Diphth,Pertus(Acell),Tet Adult 0.5 Ml Syringe IM 11/27/23 17:28 0.5 ml .ONCE ONE Administration Medical Decision Making Medical Decision Making MDM Narrative: Patient is a 28 year old assigned female at with a history of anxiety and eczema presenting to the emergency department today with a forehead laceration. Patient's physical exam showed a 3cm forehead / scalp laceration with no active bleeding. Portions of the edges of the wound were abrased with missing skin. Patient's CT head and c-spine showed no acute process. I explained my physical exam findings as well as all test results to the patient and the patient's mother. I answered all questions asked by the patient and the patient's mother. Patient's laceration was repaired, without incident. I stressed the importance of the patient taking her medication as directed (either prescribed or as the over the counter packaging recommends). I stressed the importance of the patient following up with her primary care provider. I stressed the importance of the patient returning to the emergency department immediately if her symptoms were to worsen or if she were to develop any dizziness, shortness of breath, difficulty breathing, chest pain, blurry vision, loss of vision, nausea, vomiting, abdominal pain, fever, chills, back pain, or any other complaints. Patient verbalized agreement and understanding with this treatment plan and discharge. Differential Diagnosis Differential Diagnoses: The differential diagnosis associated with the presentation includes Forehead laceration Fall Headache Concussion Head injury Admission/Observation Consideration of admission/observation: Escalation of care including admission/observation considered Patient would have been admitted to the hospital had her work up had any findings where hospital admission was appropriate and her clinical presentation warranted hospital admission. Lab Data MDM Lab Attestation statement: I reviewed the patient's lab results. My interpretation of these studies and their corresponding values is that they are grossly normal. Labs: Lab Results 11/27/23 Range/Units 14:54 Beta HCG, Quant < 2 mIU/mL Independent Interpretation I performed an independent interpretation of an: CT Scan Interpretation: My interpretation is in agreement with the radiologist's impression of these imaging studies. L EXAMINATION: CT CERVICAL SPINE WITHOUT CONTRAST CLINICAL INFORMATION: Pain after trauma COMPARISON: None available. TECHNIQUE: Thin section axial imaging with sagittal and coronal reformats. This CT examination was performed using dose optimization techniques as appropriate, variously including the following: *Automated exposure control *Adjustment of mA and/or kV according to patient size (this includes techniques or standardized protocols for targeted exams where dose is matched to indication/reason for exam; i.e. extremities or head) *Use of iterative reconstruction technique DLP: 403 mGy-cm FINDINGS: No fracture or destructive lesion or alignment abnormality. Prevertebral soft tissues normal. No encroachment on the spinal canal. CT/CT cervical spine wo IV con IMPRESSION: Unremarkable examination. Fleischner guidelines were followed. Electronically signed by: Marlon Carranza MD 11/27/2023 04:32 PM EDT RP Dictated By: Marlon Carranza MD Signed By: Electronically signed by Marlon Carranza MD 11/27/23 1632 EXAMINATION: CT HEAD WITHOUT CONTRAST CLINICAL INFORMATION: Head strike. Head pain. COMPARISON: None available. TECHNIQUE: Contiguous axial imaging was performed from the skull base to vertex without intravenous administration of contrast. This CT examination was performed using dose optimization techniques as appropriate, variously including the following: *Automated exposure control *Adjustment of mA and/or kV according to patient size (this includes techniques or standardized protocols for targeted exams where dose is matched to indication/reason for exam; i.e. extremities or head) *Use of iterative reconstruction technique DLP: 615 mGy-cm FINDINGS: No intra or extra-axial fluid collection, hemorrhage, mass, or mass effect. Calvarium is intact. Mild lobular mucoperiosteal thickening is observed within the lateral maxillary sinuses. There is mild mucosal thickening within the anterior ethmoid sinuses. CT/CT head/brain wo IV con IMPRESSION: No acute intracranial pathology. Electronically signed by: Marlon Carranza MD 11/27/2023 03:13 PM EDT RP Dictated By: Marlon Carranza MD Signed By: Electronically signed by Marlon Carranza MD 11/27/23 1513 Radiology Impression Discussion of test interpretation with radiology: I have reviewed the radiologist's reading. Independent Historian Clinical information obtained from an independent historian. History obtained from or confirmed by: Parent (patient's mother provided additional history and confirmed the history provided by the patient.) Prescription Management I considered prescription management with: Antibiotic (given the mechanism of injury, patient prescribed a prophylactic antibiotic ) Procedures Laceration Laceration 1: Site: scalp and face Size (cm): 3 Description: linear Depth: simple, single layer Local Anesthetic: lidocaine 1% Amount of anesthesia used (mL): 10 Pre-repair: wound explored, irrigated extensively and deep structures intact Skin layer closed with: other (prolene) Size (cm): 6-0 Number of sutures: 2 Technique: simple, interrupted Discharge Plan Discharge Clinical Impression: Forehead laceration Patient Disposition: Home, Self-Care Instructions: Care For Your Stitches (DC), Laceration (DC) Additional Instructions: Do NOT soak the affected area. Have your (2) sutures removed in 7-10 days. Take your antibiotic as prescribed. After the sutures have been removed and whatever remaining scab falls off, apply sun screen to the area every single day for 1 full year to reduce scarring. Follow up with your primary care provider. Return to the emergency department immediately if your symptoms worsen or if you develop any dizziness, shortness of breath, difficulty breathing, chest pain, blurry vision, loss of vision, nausea, vomiting, abdominal pain, fever, chills, back pain, or any other complaints. Prescriptions: New cephalexin 500 mg capsule 500 mg PO Q6H 7 Days Qty: 28 0RF No Action Plus 29 mg iron- 1 mg tablet 1 tab PO DAILY 90 Days Qty: 90 3RF sennosides [Senokot] 8.6 mg tablet 8.6 mg PO BID PRN (Reason: constipation) 14 Days Qty: 28 1RF hydrocortisone [Proctosol HC] 2.5 % cream with perineal applicator 1 appl VA BID-QID PRN (Reason: hemorrhoids) Qty: 30 2RF docusate sodium 100 mg capsule 200 mg PO BEDTIME Qty: 90 3RF bisacodyl [Dulcolax (bisacodyl)] 5 mg tablet,delayed release (DR/EC) 10 mg PO BEDTIME Qty: 180 4RF polyethylene glycol 3350 [Miralax] 17 gram/dose powder 238 g PO ONCE Qty: 238 0RF Rx Instructions: As directed by gastroenterology department at [facility] Referrals: [facility] Family [facility] [Provider Group] (Call to establish and follow up with a primary care provider. If you already have a primary care provider, please follow up with them.) [facility] Primary Care, Kaitlin [Provider Group] (Call to establish and follow up with a primary care provider. If you already have a primary care provider, please follow up with them.) [facility] Primary Care,Ann [Provider Group] (Call to establish and follow up with a primary care provider. If you already have a primary care provider, please follow up with them.) Stand Alone Forms: Work/School Release Interventions: ED Discharge Assessment Last Done: 11/27/23 18:55 Discharge Date/Time: 11/27/23 18:55 Print Language: Azerbaijani
[2023-11-27 15:37] LABS: HCG Quantitative < 2 mIU/mL
[2023-11-27] MEDS: Diphth,Pertus(ACell),Tet Adult 0.5 ML SYRINGE IM (17:44)
[2023-11-27 18:55] VITALS: BP 109/75; PULSE 75; RESP 18; TEMP 36.6; O2SAT 98
== END 2023-11-27 18:55 | disposition home or self-care (01) ==
PROVIDERS: Physician Assistant Medical; Emergency Provider Emergency Medicine
DX: S01.81XA Laceration without foreign body of other part of head, initial encounter (principal); W01.118A Fall on same level from slipping, tripping and stumbling with subsequent striking against other sharp object, initial encounter; Y93.9 Activity, unspecified; Y92.9 Unspecified place or not applicable; Y99.9 Unspecified external cause status; Z23 Encounter for immunization
CPT/HCPCS: 12013; 36415; 70450; 72125; 84702; 90471; 90715; 99282; 99284

== ENCOUNTER 2023-12-06 11:34 | Outpatient (AMB) | payer MEDICAID, SELFPAY ==
[2023-12-06 11:40] VITALS: BP 110/78; PULSE 70; O2SAT 98; BMI 29.9
--- NOTE | 2023-12-06 11:40 | AM.OFFWIN_ITS ---
Intake Vital Signs 12/06/23 11:40 Height 5 ft 4 in Weight 174 lb BMI 29.9 BP 110/78 Blood Pressure Location Rt brachial Position Sitting Pulse 70 Pulse Source Pulse Oximeter Pulse Oximetry (%) 98 Oxygen Delivery Method Room Air Intake Visit Reasons: EP-head stiches removal Patient Tobacco Use Status: Never used Tobacco Allergies No Known Allergies Allergy (Verified 11/27/23 14:23) Do you need a note to return to daycare/school/sports/work: No HPI HPI Comments History of Present Illness Details This is a 28-year-old female who presented to the walk-in clinic for suture removal. Patient had 2 sutures placed to her hairline on 11/27/2023 at [facility] Emergency room. Patient reports feeling well without headaches, visual disturbances, nausea/vomiting. There has been no purulent drainage or surrounding erythema of the laceration. [facility] Medical History History of fracture of arm Eczema No known health problems Surgical History No pertinent past surgical history Social History Housing: Apartment Alcohol intake: never Patient Tobacco Use Status: Never used Tobacco e-Cigarette/Vaping Use: Never Used Current occupational status: employed Cognitive needs: No Hearing needs: No Vision needs: No Female Reproductive History Menstrual Age of Menarche: 14 Review of Systems Const All systems reviewed & are unremarkable except as noted in HPI and below Reports no additional complaints Eyes Reports no additional complaints ENT Reports no additional complaints Card Reports no additional complaints Resp Reports no additional complaints GI Reports no additional complaints Reports no additional complaints Musc Reports no additional complaints Skin/Breast Reports system reviewed and no additional complaints, except as documented Neuro Reports no additional complaints Psych Reports no additional complaints Endo Reports no additional complaints Quentin/Lymph Reports no additional complaints Aller/Immun Reports no additional complaints Physical Exam Vital Signs: Last Vital Signs Pulse 70 12/06/23 11:40 BP 110/78 12/06/23 11:40 Pulse Ox 98 12/06/23 11:40 Oxygen Delivery Method Room Air 12/06/23 11:40 BMI result Body Mass Index 29.9 Const Other: Vital signs reviewed. Constitutional: Non-toxic appearing. No acute distress. Well-developed and well-nourished. HEENT: There is a small laceration the patient's hairline status post suture repair without evidence of purulent drainage or surrounding erythema. Skin: Warm and dry. No rashes or lesions noted. Neck: Full and painless range of motion. No cervical lymphadenopathy. Cardio: Regular rate. Pulmonary: No respiratory distress. No accessory muscle usage. Musculoskeletal: Normal range of motion in joints throughout the body. No deformity or other signs of injury. Neuro: Alert and oriented x4. Cranial nerves 2-12 grossly intact. No focal deficits appreciated. Psych: Normal mood and affect. Assessment & Plan Assessment & Plan (1) Encounter for removal of sutures: Code(s): Z48.02 - Encounter for removal of sutures Plan: This is a 28-year-old female who presented to the walk-in clinic for suture removal. She had 2 sutures placed to a forehead laceration on 11/27/2023. The 2 sutures were removed in entirety without difficulty. The laceration is clean, dry, and intact. There is no evidence of erythema or purulent drainage. Patient advised to keep the area clean and dry. She was advised to follow-up here for persistent or worsening symptoms. Coding Level of Care Code Est Pt Level 3 (55102) Diagnoses Encounter for removal of sutures Z48.02
== END 2023-12-06 12:19 | disposition home or self-care (01) ==
PROVIDERS: Visit Provider Physician Assistant Medical
DX: Z48.02 Encounter for removal of sutures (principal)

== ENCOUNTER → 2023-12-06 11:34 | Outpatient (BNVA) | payer OTHER, SELFPAY | DX: Z48.02 Encounter for removal of sutures (principal) | CPT/HCPCS: 99212 ==

== ENCOUNTER 2023-12-17 13:07 | Outpatient (AMB) | payer MEDICAID, SELFPAY ==
--- NOTE | 2023-12-17 13:08 | MHC.OFFWIV ---
Intake Vital Signs 12/17/23 13:13 Height 5 ft 4 in Weight 174 lb BMI 29.9 BP 120/80 Blood Pressure Location Lt brachial Position Sitting Pulse 77 Pulse Source Pulse Oximeter Pulse Oximetry (%) 98 Oxygen Delivery Method Room Air Intake Visit Reasons: EP Stitch still in head?? Patient Tobacco Use Status: Never used Tobacco Allergies No Known Allergies Allergy (Verified 11/27/23 14:23) HPI HPI Comments History of Present Illness Details Patient is a 28-year-old female complaining of a suture that was left in her head after she came in to have them removed. Patient had 2 sutures placed to her hairline on 11/27/2023 at [facility] Emergency room. She came into this clinic on December 05 to have them removed. Patient tells me there was a scab in place where the sutures were and she thinks that the piece of suture material was caught under the scab. She said the scab just fell off and she noticed a little bit of blue in her hairline so she came in to have us look at it. [facility] Medical History History of fracture of arm Eczema No known health problems Surgical History No pertinent past surgical history Social History Housing: Apartment Alcohol intake: never Patient Tobacco Use Status: Never used Tobacco e-Cigarette/Vaping Use: Never Used Current occupational status: employed Cognitive needs: No Hearing needs: No Vision needs: No Female Reproductive History Menstrual Age of Menarche: 14 Review of Systems Const All systems reviewed & are unremarkable except as noted in HPI and below Physical Exam Vital Signs: Last Vital Signs Pulse 77 12/17/23 13:13 BP 120/80 12/17/23 13:13 Pulse Ox 98 12/17/23 13:13 Oxygen Delivery Method Room Air 12/17/23 13:13 BMI result Body Mass Index 29.9 Const General: cooperative, healthy appearing, comfortable, no acute distress and well developed Orientation/consciousness: patient oriented x3 Limitations: no limitations HEENT Head: Yes normal to inspection Neck Neck: Yes normal visual inspection and Yes supple Skin Other: 0.75cm of Prolene blue suture material in the hairline, easily removed with tweezers; no erythema or signs of infection noted Neuro General: patient oriented x3 Assessment & Plan Assessment & Plan (1) Visit for suture removal: Code(s): Z48.02 - Encounter for removal of sutures Plan: Remaining piece of suture material very easily removed with tweezers. Plan See above Coding Level of Care Code New Pt Level 3 (15476) Diagnoses Visit for suture removal Z48.02
[2023-12-17 13:13] VITALS: BP 120/80; PULSE 77; O2SAT 98; BMI 29.9
== END 2023-12-17 13:44 | disposition home or self-care (01) ==
PROVIDERS: Visit Provider Physician Assistant
DX: Z48.02 Encounter for removal of sutures (principal)

== ENCOUNTER → 2023-12-17 13:07 | Outpatient (BNVA) | payer OTHER, SELFPAY | PROVIDERS: Visit Provider Physician Assistant | DX: Z48.02 Encounter for removal of sutures (principal) | CPT/HCPCS: 99212 ==

== ENCOUNTER 2024-01-16 13:25 | Outpatient (AMB) | payer OTHER, SELFPAY ==
--- NOTE | 2024-01-16 13:29 | A.OFFPC_ITS ---
Vital Signs 01/16/24 13:37 Height 5 ft 4 in Weight 168 lb 8 oz BMI 28.9 BP 100/60 Blood Pressure Location Rt brachial Position Sitting Respiration 14 Pulse 80 Pulse Source Pulse Oximeter Temp 97.5 F Temp Source Oral Pulse Oximetry (%) 98 Oxygen Delivery Method Room Air Intake Visit Reasons: growth on back and blackened nail on feet Intake Note: bruised toenail left lower back lump within questionable birthmark per patient Allergies No Known Allergies Allergy (Verified 01/16/24 13:36) Tobacco use date assessed: 01/22/23 Dental Screening Dental Screen Date: 01/22/23 HPI growth on back and blackened nail on feet HPI Details 28 y/o female presents today with compla ints of a mole on her back. Also notes blackened nails. Her shoes fit okay and has been running. HPI Comments History of Present Illness Details Documentation assistance for Mauricio Reid MD, was provided by bAhi Pete,? Paper Conservator on 01/16/2024 at 1:54 PM EST. I, Dr. Reid, have read, observed, and verified documentation. [facility] Medical History History of fracture of arm Eczema No known health problems Surgical History No pertinent past surgical history Social History Housing: Apartment Alcohol intake: never Patient Tobacco Use Status: Never used Tobacco e-Cigarette/Vaping Use: Never Used Current occupational status: employed Cognitive needs: No Hearing needs: No Vision needs: No Female Reproductive History Menstrual Age of Menarche: 14 Questionnaire PHQ-9 Over the last 2 weeks, how often have you been bothered by any of the following problems? 1. Little interest or pleasure in doing things: not at all 2. Feeling down, depressed, or hopeless: not at all 3. Trouble falling or staying asleep, or sleeping too much: not at all 4. Feeling tired or having little energy: not at all 5. Poor appetite or overeating: not at all 6. Feeling bad about yourself - or that you are a failure or have let yourself or your family down: not at all 7. Trouble concentrating on things, such as reading the newspaper or watching television: not at all 8. Moving or speaking so slowly that other people could have noticed. Or the opposite - being so fidgety or restless that you have been moving around a lot more than usual: not at all 9. Thoughts that you would be better off or of hurting yourself in some way: not at all Total score: 0 Source: Developed by Drs. Wojciech Sullivan, Fatmata Cobos, Josafat Richards and colleagues, with an educational nando from [employer]. Thrive Questionnaire Date Thrive assessed: 01/22/23 I am a: Patient What is your living situation today?: I have a steady place to live Within the past 12 months, did the food you bought not last and you didn't have the money to get more?: Never true Within the past 12 months, did you worry whether your food would run out before you got money to buy more?: Never true Do you have trouble paying for medicines?: No Do you have trouble getting transportation to medical appointments?: No Do you have trouble paying your heating and electricity bill?: No Do you have trouble taking care of your child, family member or friend?: No Do you have trouble with day-to-day activities such as bathing, preparing meals, shopping, managing finances, etc.?: No Are you currently unemployed and looking for a job?: Yes Are you interested in more education?: Yes Please select the resources that you would like help with: Childcare Currently or been in a relationship where the following occur: No concerns reported THRIVE Score: 0 AUDIT C Alcohol Use Questionnaire (AUDIT-C) 1. How often do you have a drink containing alcohol?: Never Total Score: 0 PORSHA-7 AMB Questionnaire PORSHA-7 Date PORSHA - 7 assessed: 01/22/23 Feeling nervous, anxious, or on edge: 0 = Not at all Not being able to stop or control worryin = Not at all Worrying too much about different things: 0 = Not at all Trouble relaxin = Not at all Being so restless that it is hard to sit still: 0 = Not at all Becoming easily annoyed or irritable: 0 = Not at all Feeling afraid as if something awful might happen: 0 = Not at all Total PORSHA-7 score (0-4 normal; 5-9 mild; 10-14 moderate; 15-21 severe): 0 Source: Developed by Drs. Wojciech Sullivan, Fatmata Cobos, Josafat Richards and colleagues, with an educational nando from [employer]. Review of Systems Const Denies chills, Denies fatigue, Denies fever(s), Denies headache(s) and Denies weakness ENT Denies dizziness and Denies headache(s) Card Denies dyspnea Resp Denies cough, Denies dyspnea, Denies wheezing and Denies other (shortness of breath) Musc Denies numbness and Denies tingling Neuro Denies dizziness, Denies headache(s), Denies numbness, Denies tingling and Denies weakness Psych Denies anxiety and Denies depression Endo Denies fatigue Aller/Immun Denies wheezing Physical exam (Primary Care) Vital Signs: Last Vital Signs Temp 97.5 F 01/16/24 13:37 Pulse 80 01/16/24 13:37 Resp 14 01/16/24 13:37 BP 100/60 01/16/24 13:37 Pulse Ox 98 01/16/24 13:37 Oxygen Delivery Method Room Air 01/16/24 13:37 BMI result Body Mass Index 28.9 Tobacco/Smoking Status: Tobacco use Status Tobacco use date assessed 01/22/23 01/16/24 13:32 Patient Tobacco Use Status Never used Tobacco 01/16/24 13:32 e-Cigarette/Vaping Use Never Used 01/16/24 13:32 PHQ-9: PHQ-9 Score PHQ-9: Total score 0 01/16/24 13:32 Thrive Assessment: Date of Thrive Assessment Date Thrive assessed 01/22/23 01/16/24 13:32 Currently or been in a relationship where the following occur: No concerns reported Const General: well developed; No acute distress Nutritional Appearance: well nourished Orientation/consciousness: patient oriented x3 HENMT Head: Yes normocephalic and Yes atraumatic Eyes General: appearance normal, both eyes and all related structures Pupils: Equal, round and reactive pupils present EOM: EOMs intact bilaterally Resp Effort & Inspection: normal respiratory effort Skin Other: About 1 and a quarter cm in size on L posterior hip on waistband area Neuro General: patient oriented x3 and gait normal Cranial nerves: Yes Equal, round and reactive pupils present Extrem Other: L great toe and 2nd toe at the nail has darkened stripe of black/purple coloration under the nail Psych Affect: normal affect Coding Level of Care Code Est Pt Level 3 (31391) Diagnoses Neoplasm of uncertain behavior of skin D48.5 Assessment & Plan Assessment & Plan (1) Neoplasm of uncertain behavior of skin: Code(s): D48.5 - Neoplasm of uncertain behavior of skin Category: Medical Plan: Melanotic?lesion?and?left?posterior?hip which?patient?notes?is?growing?rapidly.??Also?getting?irritated?at?waist band. Referred?to?dermatology Plan Patient?also?has?darkened?area?under?1st?and?2nd?toe?nails?on?left?foot. This?appears?to?be?nail?trauma.??She?will?have?a?envelope folder?look?at?this?as?don dominguez Orders: Referrals Dermatology Referral D48.5 - Neoplasm of uncertain behavior of skin
[2024-01-16 13:37] VITALS: BP 100/60; PULSE 80; RESP 14; TEMP 36.4; O2SAT 98; BMI 28.9
== END 2024-01-16 13:55 | disposition home or self-care (01) ==
PROVIDERS: Visit Provider Family Medicine
DX: D48.5 Neoplasm of uncertain behavior of skin (principal)

== ENCOUNTER → 2024-01-16 13:25 | Outpatient (BNVA) | payer OTHER, SELFPAY | PROVIDERS: Visit Provider Family Medicine | DX: D48.5 Neoplasm of uncertain behavior of skin (principal) | CPT/HCPCS: 96127; 99212 ==

== ENCOUNTER 2024-02-22 22:23 | Emergency (ER) | payer OTHER, SELFPAY ==
--- NOTE | 2024-02-22 22:24 | ECG_ITS ---
Test Reason : CP Blood Pressure : */* mmHG Vent. Rate : 76 BPM Atrial Rate : 76 BPM P-R Int : 128 ms QRS Dur : 88 ms QT Int : 416 ms P-R-T Axes : 74 49 47 degrees QTcB Int : 468 ms Normal sinus rhythm Normal ECG When compared with ECG of 07-Nov-2020 11:04, No significant change was found Referred By: Generic ED Physician Electronically Signed By: ELISE BARRAGAN
[2024-02-22 22:45] LABS: MANUAL DIFF FLAG NO
--- NOTE | 2024-02-22 22:49 | MHC.EDTECH ---
Patient brought into triage area,EKG taken per order and signed by provider,labs drawn and sent to lab
[2024-02-22 22:51] VITALS: BP 101/62; PULSE 73; RESP 19; TEMP 36.7; O2SAT 99; BMI 29.6
[2024-02-22 23:01] LABS: Albumin Level 3.7 g/dL (3.5-5.0); Alkaline Phosphatase 99 U/L (39-117); Anion Gap 9 (12-20); Aspartate Amino Transferase 52 U/L (5-31); Bilirubin Total 0.3 mg/dL (0.0-1.0); Blood Urea Nitrogen 14 mg/dL (9-16); Calcium 8.2 mg/dL (8.4-10.2); Carbon Dioxide 25 mmol/L (22-29); Chloride 110 mmol/L (96-108); Creatinine Clr Calc Pharmacy 103.6; Estimated Glomerular Filt Rate > 60; Glucose Random 99 mg/dL (60-115); Potassium 3.7 mmol/L (3.3-5.1); Sodium 140 mmol/L (135-145)
[2024-02-22 23:08] LABS: Troponin-I High Sensitivity 4.5 ng/L (<3.5-17.0)
[2024-02-22 23:16] LABS: Basophils Percent Auto 0.9 % (0-2); Eosinophils Absolute Auto 0.2 X10*3/uL (0.0-0.4); Eosinophils Percent Auto 3.6 % (0-4); Hematocrit 37.2 % (37.0-47.0); Hemoglobin 12.2 g/dl (12.0-16.0); Imm Gran Abs Auto 0.01 X10*3/uL (0.00-0.03); Imm Gran Pct Auto 0.2 % (0.0-0.4); Lymphocytes Absolute Auto 2.4 X10*3/uL (1.2-4.9); Mean Corpuscular HGB Conc 32.8 g/dl (31.0-35.0); Mean Corpuscular Volume 79.1 fL (80.0-98.0); Mean Platelet Volume 9.9 fL (9.4-12.3); Monocytes Absolute Auto 0.4 X10*3/uL (0.1-1.2); Monocytes Percent Auto 9.6 % (2-11); Neutrophils Absolute Auto 1.4 x10*3/uL (2.0-8.3); Neutrophils Percent Auto 31.7 % (45-73); Platelet Count 231 X10*3/uL (160-400); Red Cell Distribution Width 13.2 % (11.0-16.0); White Blood Count 4.5 X10*3/uL (4.8-10.8)
[2024-02-22 23:17] LABS: Alanine Aminotransferase 37 U/L (0-31)
== END 2024-02-23 01:41 | disposition left against medical advice (07) ==
PROVIDERS: Emergency Provider Internal Medicine; PCP Family Medicine
DX: R07.9 Chest pain, unspecified (principal); Z53.21 Procedure and treatment not carried out due to patient leaving prior to being seen by health care provider
CPT/HCPCS: 36415; 80053; 84484; 85025; 93005; 99281; 99283

== ENCOUNTER → 2024-02-22 22:24 | Outpatient (BNV) | payer OTHER, SELFPAY | PROVIDERS: Emergency Provider Internal Medicine; PCP Family Medicine; Visit Provider Internal Medicine | DX: R07.9 Chest pain, unspecified (principal) | CPT/HCPCS: 93010 ==

== ENCOUNTER 2024-04-15 11:27 | Outpatient (AMB) | payer OTHER, SELFPAY ==
--- NOTE | 2024-04-15 11:36 | MHC.OFFVIS ---
Vital Signs 04/15/24 11:39 Height 5 ft 4 in Weight 162 lb BMI 27.8 BP 104/72 Intake Visit Reasons: Vaginal Itch Accompanied by: Self / Same As Patient Allergies No Known Allergies Allergy (Verified 04/15/24 11:44) Is last menstrual period known: Yes Last menstrual period: 03/07/24 Post menopausal: No Patient : No HPI HPI Vaginal Itch: Details: Patient is here because she has got vaginal itching for about the last 2 weeks. She has had something like before but thought it was a urinary tract infection. She is healthy her period is late but she is not sexually active and has not been for months her last menstrual period was March 07 and it was normal for her. She has been getting regular periods up until this 1 is late. She is under some stress between work and everything. She has been working out a lot and wears Lycra a lot and tends to live in it. [facility] Medical History History of fracture of arm Eczema No known health problems Surgical History No pertinent past surgical history Social History Housing: Apartment Alcohol intake: never Patient Tobacco Use Status: Never used Tobacco e-Cigarette/Vaping Use: Never Used Patient : No Current occupational status: employed Cognitive needs: No Hearing needs: No Vision needs: No Female Reproductive History Menstrual Age of Menarche: 14 Duration of menses: 6-7 days Date of last menstrual period: 03/07/24 Total pregnancies: 1 Full term: 1 Date of last pap smear: 03/06/23 (+ pap smear, +hpv) History of abnormal pap smear: Yes Physical Exam Vital Signs: Last Vital Signs BP 104/72 04/15/24 11:39 BMI result Body Mass Index 27.8 Other: External vulva is bright pink consistent with yeast infection and there is a small amount of whitish discharge which could be consistent with either yeast or normal vaginal discharge. Vagina is slightly pink there was also a blanched area towards upper part of her labia minora consistent with entrapped moisture from the Lycra. Cervix appears smooth multiparous pink. External Female Exam: normal external appearance and normal appearance of the urethra Speculum Exam - Vagina: normal appearance of the vagina and normal vaginal discharge Speculum Exam - Cervix: normal appearance of the cervix and Cervical os closed Results Reviewed Results Reviewed: Name: Rachel Trejo Age/Sex: 27/F Attending: Kingsley Haynes MD : 1995 Submitted by: Kingsley Haynes MD Copies to: Meg Grullon NP MR #: [id number] Status: DEP REF Collected: 01/16/23 Location: [facility] Received: 01/16/23 Diagnosis A. Endocervix, curettage: Scant fragments of squamous epithelium and endocervical mucosa within normal limits. B. Cervix, 1:00, biopsy: Mildly inflamed squamous mucosa; otherwise within normal limits; no endocervical epithelium seen. C. Cervix, 3:00, biopsy: Mildly inflamed cervical transformation zone mucosa with reactive changes. D. Cervix, 11:00, biopsy: Mildly inflamed cervical transformation zone mucosa with reactive changes. E. Cervix, 12:00, biopsy: Mildly inflamed cervical transformation zone mucosa with reactive changes. Clinical History ASCUS with positive high risk HPV Microscopic Description A-E. Microscopic sections reviewed. Material Received A. ECC B. Cx bx 1 C. Cx bx 3 D. Cx bx 11 E. Cx bx 12 Gross Description Received in 5 parts. Part A: Received in formalin labeled ?ECC? is a 0.3 x 0.1 x 0.1 cm aggregate of clear mucus and scant blood, submitted in toto in a cassette labeled A. Part B: Received in formalin labeled ?cx bx 1? is a 0.45 cm rubbery, jaffe-pink wedge-shaped fragment of mucosa, submitted in toto in a cassette labeled B. Part C: Received in formalin labeled ?cx bx 3? is a 0.45 cm rubbery, jaffe-pink wedge-shaped fragment of mucosa, submitted in toto in a cassette labeled C. Patient: Rachel Trejo Age/Sex: 27/F MR#: [id number] Page 1 of 2 Surgical Pathology [id number] Part D: Received in formalin labeled ?cx bx 11? is a 0.5 cm rubbery, jaffe-pink wedge-shaped fragment of mucosa, submitted in toto in a cassette labeled D. Part E: Received in formalin labeled ?cx bx 12? is a 0.5 cm rubbery, jaffe-pink wedge-shaped fragment of mucosa, submitted in toto in a cassette labeled E. CEDS Copies To Meg Grullon NP [address] [place], [place] [id number] Kingsley Haynes MD [address] [place] [address] Dr. Maya [address] [place] [address] [phone] NOTE: Unless otherwise stated, all tissue is formalin-fixed and paraffin-embedded. Some or all of the immunohistochemical tests reported herein may have been developed and their performance characteristics determined by [facility]. They have not been cleared or approved by the U.S. Food and Drug Administration (FDA). However, the FDA has determined that such clearance or approval is not necessary. This laboratory is certified under the Clinical Laboratory Improvement Amendments of 1988 (CLIA) as qualified to perform high complexity clinical laboratory testing. Electronically Signed By: Mauricio Barba MD 01/18/23 7920 Patient: Rachel Trejo Age/Sex: 27/F MR#: [id number] Assessment & Plan Assessment & Plan (1) Cervical cancer screening: Comment: 2018 pap= ascus, neg hpv, (reviewed as wnl) 01/20/21 pap= neg( asccp recs routine screening w hpv.- repeat in 1 yr- mo'b. pap done 03/06/22 w cotesting= equals ASCUS with HPV positive-needs colpo. Code(s): Z12.4 - Encounter for screening for malignant neoplasm of cervix Category: Medical (2) Vaginal itching: Code(s): N89.8 - Other specified noninflammatory disorders of vagina Category: Medical (3) ASCUS with positive high risk HPV cervical: Code(s): R87.610 - Atypical squamous cells of undetermined significance on cytologic smear of cervix (ASC-US); R87.810 - Cervical high risk human papillomavirus (HPV) DNA test positive Category: Medical (4) Yeast infection of the vagina: Code(s): B37.31 - Acute candidiasis of vulva and vagina Category: Medical Plan Testing done for gonorrhea chlamydia trich Mere and BV. Discharge and appearance vulva consistent with mild yeast. Patient noncontributory medical history other than she has been wearing like a tight a lot in basically lives in them when she is not working because she has been so much. Discussed the new to allow air to her vulva. We will prescribe Monistat 7 vaginal cream use as directed. I am also giving her some refills just a future use but my best recommendation to change out of the Lycra tights she then shower just cool water as much air to possible at least overnight. She has an appointment for her annual exam with Pap smear coming up on 04/[address] Haynes which is the follow-up for the abnormal Pap and colpo from last year so she will be having her Pap and co testing in 2 weeks. I asked her to call if she does not get relief with the Monistat 7 cream and then we could prescribe the pill for now let's try the cream. Medications: New miconazole nitrate 2% (Miconazole-7) 1 appful vaginal BEDTIME 45 grams 2RF 7 days Coding Level of Care Code Est Pt Level 3 (86143) Diagnoses Cervical cancer screening Z12.4 Vaginal itching N89.8 ASCUS with positive high risk HPV cervical R87.610; R87.810 Yeast infection of the vagina B37.31
[2024-04-15 11:39] VITALS: BP 104/72; BMI 27.8
--- OUTSIDE RECORDS SUMMARY | 2024-04-15 13:52 | XMS_ITS | Encounter Summary ---
Author Organization [facility] Address [address] [place] [address] Phone Care Team Providers Care [employer] Division Manager Name Role Phone Amarilis Fernando MD Primary Care Provider [phone] Encounter Details Date Type Department Care Team (Late st Contact Info) Description 09/27/2016 Conversion Encounter [facility] [place] [address] [place] [address] Social History Tobacco Use Types Packs/Day Years Used Date Smoking Tobacco: Never Comments:Never smoker Comments Unknown Sex and Gender Information Value Date Recorded Sex Assigned at Not on file Legal Sex Female 4:55 PM EDT Gender Identity Not on file Sexual Orientation Not on file documented as of this encounter Plan of Treatment Not on file documented as of this encounter Visit Diagnoses Not on filedocumented in this encounter Care Teams [employer] Manager Relationship Specialty Start Date End Date Amarilis Fernando MD [address] [place] [address] PCP - General 09/21/16 08/02/22 documented as of this encounter
--- OUTSIDE RECORDS SUMMARY | 2024-04-15 13:52 | XMS_ITS | Clinical Summary ---
Author Organization [facility] ity Address [address] [place] [address] Care Team Providers Care Polisher Brass Name Role Phone Unavailable Primary Care Provider Unavailabl e Social History Tobacco Use Types Packs/Day Years Used Date Smoking Tobacco: Never Assessed Comments Unknown Sex and Gender Information Value Date Recorded Sex Assigned at Not on file Legal Sex Female 6:15 AM EST Gender Identity Not on file Sexual Orientation Not on file Plan of Treatment Health Maintenance Due Date Last Done Comments DTaP,Tdap,and Td Vaccines (1 - Tdap) 2013 Hepatitis B Vaccines (1 of 3 - 19+ 3-dose series) 2013 Cervical Cancer Screening: P ap Smear 2015 COVID-19 Vaccine ( - 2023-2 5 season) 2023 Influenza Vaccine (#1) 2023 HIB Vaccines Aged Out No longer eligi ble based on patient's age to complete this topic HPV Vaccines Aged Out No longer eligi ble based on patient's age to complete this topic Hepatitis A Vaccines Aged Out No long er eligible based on patient's age to complete this topic IPV Vaccines Aged Out No longer eligi ble based on patient's age to complete this topic MMR Vaccines Aged Out No longer eligi ble based on patient's age to complete this topic Meningococcal ACWY Vaccine Aged Out N o longer eligible based on patient's age to complete this topic Meningococcal B Vacine Aged Out No lo nger eligible based on patient's age to complete this topic Pneumococcal Vaccine: Pediat rics (0 to 5 Years) and At-Risk Patients (6 to 64 Years) Aged Out No longer eligible b ased on patient's age to complete this topic RSV Immunization Patients Un luisana 20 months Aged Out No longer eligible b ased on patient's age to complete this topic Varicella Vaccines Aged Out No longer eligible based on patient's age to complete this topic
--- OUTSIDE RECORDS SUMMARY | 2024-04-15 13:52 | XMS_ITS | Clinical Summary ---
Author Organization [facility] Address [address] [place] [phone] Phone Care Team Providers Care Library Technology Instructor Name Role Phone Unavailable Primary Care Provider Unavailabl e Immunizations Immunization Administration Dates Next Due DTP 10/28/1996, 5,1994, 995 DTaP 5 08/30/1999,10/28/1996 H1N1 01/28/2009 HPV, Quadrivalent 11/27/2007,07/28/2007,05/28/19 08 Hep A, Adult 06/08/2014 Hep B, ped/adol 04/08/1995,1994,1994 Hib (PRP-T) 06/17/1995, 5,1994, 995 IPV 08/30/1999 MMR 08/09/1998,04/08/1995 Meningococcal Conj (Menactra) MCV4P 06/08/2014,0 05/22/2006 OPV 1994,1994,1994 Tdap 05/22/2006 Family History Relation Name Status Comments Mother Alive Mother: Alive a nd well Other Family history of Sudden /[place] under 55, Family history of Hyperlipidemia, Family history of Diabetes mellitus, Family history of Migraines Sister 1 Alive Sister: Alive a nd well, Alive and well Sister 2 Alive Sister: Alive a nd well, Alive and well Social History Tobacco Use Types Packs/Day Years Used Date Smoking Tobacco: Never Comments:Never smoker Comments Unknown Sex and Gender Information Value Date Recorded Sex Assigned at Not on file Legal Sex Female 4:55 PM EDT Gender Identity Not on file Sexual Orientation Not on file Last Filed Vital Signs Vital Sign Reading Time Taken Comments Blood Pressure 115/79 06/08/2014 12:00 AM EDT Pulse 74 06/08/2014 12:00 AM EDT Temperature 36.4 ??C (97.5 ??F) 01/20/2014 12:[address] Respiratory Rate - - Oxygen Saturation 99% 07/25/2012 12:00 AM EDT Inhaled Oxygen Concentration - - Weight 65 kg (143 lb 3.2 oz) 06/08/2014 12:00 AM EDT Height 162.6 cm (5' 4 ) 06/08/2014 12:00 AM EDT Body Mass Index 24.58 06/08/2014 12:00 AM EDT Plan of Treatment Health Maintenance Due Date Last Done Comments Varicella Vaccines (1 of 2 - 13+ 2-dose series) 2007 DTaP,Tdap,and Td Vaccines (7 - Td or Tdap) 05/22/2016 05/22/2006, 08/30/1999, 10/28/1996, Additional history exists Influenza Vaccines (#1) 2023 COVID-19 Vaccine (2023- season) 2023 Hepatitis B Vaccines Completed 04/08/1995, 1994, 1994 HIB Vaccines Completed 06/17/1995, 0 08/1994, 1994, Additional history exists MMR Vaccines Completed 08/09/1998, 04/08/1995 IPV Vaccines Completed 08/30/1999, 08/1994, 1994, Additional history exists HPV Vaccines Completed 11/27/2007, 07/12, 05/28/2007 Hepatitis A Vaccines Aged Out 06/08/2014 No long er eligible based on patient's age to complete this topic Meningococcal Vaccine Aged Out 06/08/2014, 007 No longer eligible based on patient's age to complete this topic Men B Vaccine Aged Out No longer elig ible based on patient's age to complete this topic Pneumococcal Vaccine Aged Out No long er eligible based on patient's age to complete this topic
== END 2024-04-15 12:49 | disposition home or self-care (01) ==
PROVIDERS: PCP Family Medicine; Visit Provider Advanced Practice Midwife
DX: Z12.4 Encounter for screening for malignant neoplasm of cervix (principal); N89.8 Other specified noninflammatory disorders of vagina; R87.610 Atypical squamous cells of undetermined significance on cytologic smear of cervix (ASC-US); R87.810 Cervical high risk human papillomavirus (HPV) DNA test positive; B37.31 Acute candidiasis of vulva and vagina
CPT/HCPCS: 99213

== ENCOUNTER 2024-04-15 11:27 | Outpatient (REF) | payer OTHER, SELFPAY ==
--- OUTSIDE RECORDS SUMMARY | 2024-04-15 17:17 | XMS_ITS | Clinical Summary ---
Author Organization [facility] Address [address] [place] [phone] Phone Care Team Providers Care Contact Representative Name Role Phone Unavailable Primary Care Provider [...] nd well Other Family history of Sudden /[place] under 55, Family history of Hyperlipidemia, Family [...]
--- OUTSIDE RECORDS SUMMARY | 2024-04-15 17:17 | XMS_ITS | Clinical Summary ---
Author Organization [facility] [employer] [facility] ity Address [address] [place] [address] Care Team Providers Care Tankman Name Role Phone Unavailable Primary Care Provider [...]
--- OUTSIDE RECORDS SUMMARY | 2024-04-15 17:17 | XMS_ITS | Encounter Summary ---
Author Organization [facility] Address [address] [place] [address] Phone Care Team Providers Care Asbestos Siding Mechanic Name Role Phone Amariils Fernando MD Primary Care Provider [phone] Encounter Details Date Type Department Care Team (Late st Contact Info) Description 09/27/2016 Conversion Encounter [facility] [place] [address] [place] [address] Social History Tobacco Use Types Packs/Day Years [...] on filedocumented in this encounter Care Teams Asbestos Siding Mechanic Relationship Specialty Start Date End Date Amarilis Fernando MD [address] [place] [address] PCP - General 09/21/16 08/02/22 documented as of this encounter
[2024-04-16 13:46] LABS: CT PCR NOT DETECTED (Not Detect.); NG PCR NOT DETECTED (Not Detect.)
[2024-04-16 17:13] LABS: Bacterial Vaginosis PCR NEGATIVE (Negative); Candida Group PCR DETECTED (Not Detect); Candida glab krusei PCR NOT DETECTED (Not Detect); Trichomonas vaginalis PCR NOT DETECTED (Not Detect)
== END 2024-04-15 11:28 | disposition home or self-care (01) ==
LOC: HO.LAB 11:27
PROVIDERS: PCP Family Medicine; Visit Provider Advanced Practice Midwife
DX: N89.8 Other specified noninflammatory disorders of vagina (principal); Z20.2 Contact with and (suspected) exposure to infections with a predominantly sexual mode of transmission; R87.610 Atypical squamous cells of undetermined significance on cytologic smear of cervix (ASC-US); R87.810 Cervical high risk human papillomavirus (HPV) DNA test positive; B37.31 Acute candidiasis of vulva and vagina
CPT/HCPCS: 81515; 87491; 87591; 99212

== ENCOUNTER 2024-04-28 08:12 | Outpatient (REF) | payer OTHER, SELFPAY ==
[2024-05-06 13:05] LABS: HPV Genotype 16 Negative (Negative); HPV Genotype 18 Negative (Negative); HPV High Risk Positive (Negative)
== END 2024-04-28 08:13 | disposition home or self-care (01) ==
LOC: HO.LNP 08:12
PROVIDERS: PCP Family Medicine; Visit Provider Obstetrics & Gynecology
DX: Z01.419 Encounter for gynecological examination (general) (routine) without abnormal findings (principal); R87.610 Atypical squamous cells of undetermined significance on cytologic smear of cervix (ASC-US); R87.810 Cervical high risk human papillomavirus (HPV) DNA test positive
CPT/HCPCS: 81025; 87626; 88175; 99395; 99459

== ENCOUNTER 2024-04-28 08:12 | Outpatient (AMB) | payer OTHER, SELFPAY ==
[2024-04-28 08:14] VITALS: BP 98/60; BMI 27.8
--- NOTE | 2024-04-28 08:14 | MHC.OFFVIS ---
Vital Signs 04/28/24 08:14 Height 5 ft 4 in Weight 162 lb BMI 27.8 BP 98/60 Intake Visit Reasons: Annual/cotesting Loader Operator/Ground Leader Required: No Information Interpreted: non-clinical & clinical Pull Through Hooker: Pull Through Hooker Present Accompanied by: Self / Same As Patient Allergies No Known Allergies Allergy (Verified 04/28/24 08:22) Is last menstrual period known: Yes Last menstrual period: 04/18/24 HPI Comments Details: Presenting for annual exam. No complaints. Last Pap/HPV was in 03/05 was ascus/HPV E6 E7 positive, HPV 16/18/40 5-, colpo/biopsy/ECC done in 02/02 was negative [facility] Medical History History of fracture of arm Eczema No known health problems Surgical History No pertinent past surgical history Social History Housing: Apartment Alcohol intake: never Patient Tobacco Use Status: Never used Tobacco e-Cigarette/Vaping Use: Never Used Current occupational status: employed Cognitive needs: No Hearing needs: No Vision needs: No Female Reproductive History Menstrual Age of Menarche: 14 Date of last menstrual period: 04/18/24 Date of last pap smear: 03/06/22 Review of Systems Const All systems reviewed & are unremarkable except as noted in HPI and below Card Reports as per HPI Resp Reports as per HPI GI Reports as per HPI and Reports no additional complaints Reports as per HPI Physical Exam Vital Signs: Last Vital Signs BP 98/60 04/28/24 08:14 BMI result Body Mass Index 27.8 Const General: cooperative, healthy appearing and comfortable Chest Chest palpation & inspection: normal inspection of the chest and normal palpation of entire chest wall Breast/axilla inspection: normal inspection of the breasts and normal inspection of the axillae Breast/axilla palpation: normal palpation of the breasts, normal palpation of the axillae and no axillary lymphadenopathy Resp Effort & Inspection: normal respiratory effort Auscultation: clear to auscultation bilaterally Percussion: percussion normal Cardio Palpation: normal PMI Rate: regular rate Rhythm: regular rhythm Heart sounds: no murmurs and no rubs Peripheral pulses: Peripheral pulses 2+ throughout GI Inspection: Yes normal to inspection Palpation (GI): Soft to palpation, nontender, no guarding, not rigid and No hepatosplenomegaly present Percussion: Yes normal to percussion Auscultation: normal bowel sounds Rectal Exam - Female: deferred General: Yes bladder normal to palpation External Female Exam: No lesion Speculum Exam - Vagina: normal appearance of the vagina, normal palpation, normal vaginal discharge and not erythematous Speculum Exam - Cervix: normal appearance of the cervix and normal palpation Bimanual exam- vagina & uterus: normal bimanual exam, normal palpation, uterine size normal, bladder normal to palpation, consistency normal and normal palpation Bimanual Exam- Adnexa, other: normal adnexae, no masses and no tenderness Assessment & Plan Assessment & Plan (1) Well woman exam: Code(s): Z01.419 - Encounter for gynecological examination (general) (routine) without abnormal findings Category: Medical Plan: Cotesting done. Counseled the patient about the recommended dietary allowance of 1000 mg of Calcium & 600 IU of vitamin D. The patient was instructed to perform monthly self-breast exams and to schedule an annual exam in a year; All questions answered and the patient verbalized understanding. Instructed the patient to schedule annual exam in a year Coding Level of Care Code New Pt Prev Care 18-39yr([id number] Diagnoses Well woman exam Z01.419
== END 2024-04-28 08:51 | disposition home or self-care (01) ==
LOC: HO.HWS 08:12
PROVIDERS: PCP Family Medicine; Visit Provider Obstetrics & Gynecology
DX: Z01.419 Encounter for gynecological examination (general) (routine) without abnormal findings (principal); Z32.02 Encounter for pregnancy test, result negative
CPT/HCPCS: 99395; 99459

== ENCOUNTER 2024-05-06 11:50 | Outpatient (REF) | payer OTHER, SELFPAY ==
--- NOTE | ~2024-05-06 | XR_ITS ---
EXAMINATION: XR NECK SOFT TISSUE HISTORY: R09.89 - Other specified symptoms and signs involving the circulatory an... COMPARISON: There are no prior studies for comparison. FINDINGS: AP and lateral views of the soft tissues of the neck are submitted. The epiglottis and aryepiglottic folds are unremarkable in appearance. The airways patent. There is no prevertebral soft tissue swelling. No radiopaque foreign body is identified. The bones are intact. XR/XR soft tissue neck IMPRESSION: Unremarkable examination of the soft tissues of the neck. Electronically signed by: Wojciech Saldana MD 05/06/2024 12:41 PM EDT
[2024-05-06 16:57] LABS: TSH reflex Free T4 0.42 uIU/mL (0.32-4.0)
== END 2024-05-06 11:51 | disposition home or self-care (01) ==
LOC: HO.HMGCX 11:50
PROVIDERS: PCP Family Medicine; Visit Provider Physician Assistant
DX: R09.89 Other specified symptoms and signs involving the circulatory and respiratory systems (principal)
CPT/HCPCS: 36415; 70360; 84443; 99212

== ENCOUNTER 2024-05-06 11:50 | Outpatient (AMB) | payer OTHER, SELFPAY ==
--- NOTE | 2024-05-06 11:50 | AM.OFFWIN_ITS ---
Intake Vital Signs 05/06/24 11:51 Height 5 ft 4 in Weight 164 lb BMI 28.1 BP 110/76 Blood Pressure Location Lt brachial Position Sitting Pulse 62 Pulse Source Pulse Oximeter Pulse Oximetry (%) 99 Oxygen Delivery Method Room Air Intake Visit Reasons: EP Feels like something in throat causing nausea Intake Note: Patient here because she feels like she has something in her throat that is making her nauseous. She states this has happened last week and when she ate it went away but this time its not improving. Patient Tobacco Use Status: Never used Tobacco Allergies No Known Allergies Allergy (Verified 05/06/24 11:53) Do you need a note to return to daycare/school/sports/work: Yes HPI HPI Comments History of Present Illness Details History The patient is a 29-year-old female presenting with a sensation of fullness in the throat and nausea. She reports that these symptoms began approximately two days ago and again 6 days ago and have persisted without relief from hydration or oral hygiene measures. The fullness in the throat causes nausea and a stomachache. She denies vomiting or a sensation of choking. There is no history of fever, sore throat, cough, congestion, or body aches. A recent road race and consumption of an alcoholic beverage were noted, though these were not associated with the current symptoms. The patient's daughter experienced vomiting a few days earlier, suggesting possible exposure to an infectious cause. The patient denies ear pain and has reported intermittent headaches but is not experiencing them currently. Physical Exam General: Cooperative, healthy appearing, comfortable and no acute distress Orientation/consciousness: Patient oriented x3 Limitations: No limitations Head: Normal to inspection Ears: Hearing grossly normal bilaterally, external ears normal Nose: Normal external nose present, Normal nares present and No nasal discharge present Face and sinus: Normal facial exam and Yes sinuses nontender Mouth: Normal oral and palatal mucosa present and moist mucous membranes Throat: Yes tonsils normal, Yes uvula midline. Posterior oropharynx normal Eyes: Appearance normal, both eyes and all related structures Neck: Normal visual inspection, soft, smooth, symmetrical thyroid gland Respiratory: Normal respiratory effort, able to speak in complete sentences, no respiratory distress, not tachypneic, no tripod positioning and no use of accessory muscles Skin: No rashes or lesions noted Neuro: Patient oriented x3 Extremities: Normal to inspection and Yes no clubbing, cyanosis or edema PFSH Medical History History of fracture of arm Eczema No known health problems Surgical History No pertinent past surgical history Social History Housing: Apartment Alcohol intake: never Patient Tobacco Use Status: Never used Tobacco e-Cigarette/Vaping Use: Never Used Current occupational status: employed Cognitive needs: No Hearing needs: No Vision needs: No Female Reproductive History Menstrual Age of Menarche: 14 Review of Systems Const All systems reviewed & are unremarkable except as noted in HPI and below Physical Exam Vital Signs: Last Vital Signs Pulse 62 05/06/24 11:51 BP 110/76 05/06/24 11:51 Pulse Ox 99 05/06/24 11:51 Oxygen Delivery Method Room Air 05/06/24 11:51 BMI result Body Mass Index 28.1 Assessment & Plan Assessment & Plan (1) Throat fullness: Code(s): R09.89 - Other specified symptoms and signs involving the circulatory and respiratory systems Plan: VSS, pt well appearing and PE unremarkable. I have discussed with the patient that we will take a 3-pronged approach. First, her symptoms might be attributed to gastroesophageal reflux disease GERD, and recommended starting [id number] antacid medications like Pepcid. This treatment is affordable and generally effective for managing similar ga stroesophageal symptoms. I corroborated the absence of symptoms like fever, cough, or congestion, which ruled out potential upper respiratory infections. Although viral gastroenteritis could be possible due to her child's illness, current symptoms warrant beginning with GERD treatment. Second, we will get a soft tissue XR to rule out any abscesses/infection obstructive process. My interpretation of the x-ray is it looks completely normal. Third, I will check her thyroid labs even though the physical exam was completely normal. I emphasized the importance of revisiting any new or escalated symptoms promptly. Patient was informed and verbally consented to the use of an ambient scribe for clinic note documentation during this visit Orders: Orders XR soft tissue neck Today R09.89 - Other specified symptoms and signs involving the circulatory and respiratory systems TSH reflex Free T4 Today R09.89 - Other specified symptoms and signs involving the circulatory and respiratory systems Coding Level of Care Code Est Pt Level 4 (28207) Diagnoses Throat fullness R09.89
[2024-05-06 11:51] VITALS: BP 110/76; PULSE 62; O2SAT 99; BMI 28.1
--- OUTSIDE RECORDS SUMMARY | 2024-05-06 14:19 | XMS_ITS | Clinical Summary ---
Author Organization [facility] Address [address] [place] [id number] Phone Care Team Providers Care Cake Icer And Packer Name Role Phone Unavailable Primary Care Provider [...] nd well Other Family history of Sudden /[place] under 55, Family history of Hyperlipidemia, Family [...]
--- OUTSIDE RECORDS SUMMARY | 2024-05-06 14:19 | XMS_ITS | Encounter Summary ---
Author Organization [facility] Address [address] [place] [address] Phone Care Team Providers Care Barrel Polisher Name Role Phone Amarilis Fernando MD Primary Care Provider [phone] Encounter Details Date Type Department Care Team (Late st Contact Info) Description 09/27/2016 Conversion Encounter [facility] [place] [address] [place] [address] Social History Tobacco Use Types Packs/Day Years [...] on filedocumented in this encounter Care Teams Barrel Polisher Relationship Specialty Start Date End Date Amarilis Fernando MD [address] [place] [address] PCP - General 09/21/16 08/02/22 documented as of this encounter
--- OUTSIDE RECORDS SUMMARY | 2024-05-06 14:19 | XMS_ITS | Clinical Summary ---
Author Organization [facility] ity Address [address] [place] [address] Care Team Providers Care Shoe Repairer Name Role Phone Unavailable Primary Care Provider [...]
== END 2024-05-06 12:31 | disposition home or self-care (01) ==
PROVIDERS: PCP Family Medicine; Visit Provider Physician Assistant
DX: R09.89 Other specified symptoms and signs involving the circulatory and respiratory systems (principal)

== ENCOUNTER → 2024-05-06 12:10 | Outpatient (BNV) | payer OTHER, SELFPAY | PROVIDERS: PCP Family Medicine; Visit Provider Radiology Diagnostic Radiology | DX: R09.89 Other specified symptoms and signs involving the circulatory and respiratory systems (principal) | CPT/HCPCS: 70360 ==

== ENCOUNTER 2024-06-09 07:24 | Outpatient (REF) | payer OTHER, SELFPAY ==
--- OUTSIDE RECORDS SUMMARY | 2024-06-09 07:55 | XMS_ITS | Clinical Summary ---
Author Organization [facility] ity Address [address] [place] [address] Care Team Providers Care Industrial Sales Manager Name Role Phone Unavailable Primary Care Provider [...] - 2023-2 5 season) 2023 Influenza Vaccine (Season Ended) 2024 HIB Vaccines Aged Out No longer eligi [...] age to complete this topic Meningococcal B Vaccine Aged Out No l onger eligible based on patient's age to complete [...]
--- OUTSIDE RECORDS SUMMARY | 2024-06-09 07:55 | XMS_ITS | Clinical Summary ---
Author Organization [facility] Address [address] [place] [address] Phone Care Team Providers Care Carpenter Foreman Name Role Phone Unavailable Primary Care Provider [...] nd well Other Family history of Sudden /[place] under 55, Family history of Hyperlipidemia, Family [...]
--- OUTSIDE RECORDS SUMMARY | 2024-06-09 07:55 | XMS_ITS | Encounter Summary ---
Author Organization [facility] Address [address] [place] [address] Phone Care Team Providers Care Supervisor Stripping Name Role Phone Amarilis Fernando MD Primary Care Provider [phone] Encounter Details Date Type Department Care Team (Late st Contact Info) Description 09/27/2016 Conversion Encounter [facility] [place] [address] [place], [place] [phone] Social History Tobacco Use Types Packs/Day Years [...] on filedocumented in this encounter Care Teams Supervisor Stripping Relationship Specialty Start Date End Date Amarilis Fernando MD [address] [place] [address] PCP - General 09/21/16 08/02/22 documented as of this encounter
== END 2024-06-09 07:25 | disposition home or self-care (01) ==
LOC: HO.LNP 07:24
PROVIDERS: PCP Family Medicine; Visit Provider Obstetrics & Gynecology
DX: R87.610 Atypical squamous cells of undetermined significance on cytologic smear of cervix (ASC-US) (principal); R87.810 Cervical high risk human papillomavirus (HPV) DNA test positive; Z32.02 Encounter for pregnancy test, result negative
CPT/HCPCS: 57454; 81025; 88305

== ENCOUNTER 2024-06-09 07:24 | Outpatient (AMB) | payer OTHER, SELFPAY ==
[2024-06-09 07:25] VITALS: BP 108/66; BMI 28.1
--- NOTE | 2024-06-09 07:25 | A.OFFVIS_ITS ---
Vital Signs 06/09/24 07:25 Height 5 ft 4 in Weight 164 lb BMI 28.1 BP 108/66 Intake Visit Reasons: Colposcopy Machine Bookkeeper Required: No Information Interpreted: non-clinical & clinical Reed Man: Reed Man Present (Adriana NAPOLES) Accompanied by: Self / Same As Patient Allergies No Known Allergies Allergy (Verified 06/09/24 07:29) HPI Comments Details: Presenting with abnormal Pap smear showing ascus/HPV positive, HPV 16/18 negative [facility] Medical History History of fracture of arm Eczema No known health problems Surgical History No pertinent past surgical history Social History Housing: Apartment Alcohol intake: never Patient Tobacco Use Status: Never used Tobacco e-Cigarette/Vaping Use: Never Used Current occupational status: employed Cognitive needs: No Hearing needs: No Vision needs: No Female Reproductive History Menstrual Age of Menarche: 14 Review of Systems Const All systems reviewed & are unremarkable except as noted in HPI and below Reports as per HPI and Reports no additional complaints GI Reports no additional complaints Reports no additional complaints Physical Exam Vital Signs: Last Vital Signs BP 108/66 06/09/24 07:25 BMI result Body Mass Index 28.1 Office Procedures Colposcopy Colposcopy: Pre-Procedure Counseling: Before beginning the procedure, I conducted comprehensive counseling with the patient. We thoroughly discussed the procedure itself, including its details, alternatives, and all associated risks. This included but not limited to the following complications such as bleeding, infection, and injury to the vagina, bladder, and vessels, as well as the potential need for transfusion with all its associated risks. Subsequently, the patient sign the consent. UPT done in the office was negative Pap smear result: Ascus/HPV positive, HPV 16/18 negative Procedure: During the procedure, the following steps were performed: A speculum was inserted, and acetic acid was applied. Colposcopy was conducted, allowing visualization of the transformation zone. Acetowhite lesions were identified at the 3+4 +6 +11 +12 o'clock position. Cervical biopsies were obtained from the 3+4 +6 +11 + o'clock position, followed by an endocervical curettage (ECC). Vaginoscopy of the upper vagina revealed no evidence of aceto-white lesions. Hemostasis was achieved using Monsel solution, and the patient tolerated the procedure well. Post-Procedure Instructions: The patient was advised to promptly contact the office or the after hours answering service or go to the emergency room if experiencing a temperature exceeding 100.4?F, abdominal pain, nausea/vomiting, or bleeding. Additionally, the patient was instructed to abstain from vaginal intercourse and bathtub use. The patient confirmed understanding of these instructions. Discharge Instructions: The patient was instructed to schedule a follow-up appointment in 2 weeks for further evaluation and management. Please note that this note was generated using a voice recognition program, and errors may have occurred during adapted physical education teacher. [id number] of cervix including upper vagina with biopsy and ECC Procedure code (CPT) selection complete Results AMB Test Urine AMB Test Urine Negative Last Edit by Adriana Lozada CMA on 07:32 Results Reviewed Results Reviewed: Laboratory Last Values Tst Clinic Negative 06/09/24 07:31 Assessment & Plan Assessment & Plan (1) ASCUS with positive high risk HPV cervical: Code(s): R87.610 - Atypical squamous cells of undetermined significance on cytologic smear of cervix (ASC-US); R87.810 - Cervical high risk human papillomavirus (HPV) DNA test positive Category: Medical Plan: Discussed with the patient the result of her abnormal pap, its significance, risk of progression, persistence, and regression. the false positive/negative rate of a Pap smear as a screening test in detecting cervical cancer and the indication for a diagnostic test -colposcopy, biopsy, endocervical curettage. The patient verbalized understanding and agreed with the plan, all questions answered. Colpo biopsy ECC done, see procedure note Orders: Orders AMB Colposcopy Today R87.610 - Atypical squamous cells of undetermined significance on cytologic smear of cervix (ASC-US), R87.810 - Cervical high risk human papillomavirus (HPV) DNA test positive AMB HCG Urine Test Today Z32.02 - Encounter for test, result negative Coding Level of Care Code Procedure Only Diagnoses ASCUS with positive high risk HPV cervical R87.610; R87.810 CPT Codes Colposcopy - CPT: 43254-[id number] of cervix including upper vagina with biopsy and ECC ([id number])
== END 2024-06-09 08:08 | disposition home or self-care (01) ==
LOC: HO.HWS 07:24
PROVIDERS: PCP Family Medicine; Visit Provider Obstetrics & Gynecology
DX: R87.610 Atypical squamous cells of undetermined significance on cytologic smear of cervix (ASC-US) (principal); R87.810 Cervical high risk human papillomavirus (HPV) DNA test positive; Z32.02 Encounter for pregnancy test, result negative
CPT/HCPCS: 57454

== ENCOUNTER 2024-06-18 14:11 | Outpatient (AMB) | payer OTHER, SELFPAY ==
--- NOTE | 2024-06-18 14:12 | MHC.OFFVIS ---
Intake Visit Reasons: colpo results Allergies No Known Allergies Allergy (Verified 06/09/24 07:29) HPI Comments Details: The patient is scheduled a telehealth visit post colpo for follow-up. The patient is doing well with no complaints. The patient is complaining of vulvovaginal itching no foul odor discharge The pathology showed the following: A. Endocervix, curettage: Superficial fragments of mildly inflamed endocervical and squamous epithelium with reactive changes. B. Cervix, 1 o'clock, biopsy: Inflamed cervical transformation zone mucosa with reactive changes. C. Cervix, 3 o'clock, biopsy: - Squamous mucosa within normal limits. - No endocervical epithelium identified. D. Cervix, 4 o'clock, biopsy: - Squamous mucosa within normal limits. - No endocervical epithelium identified. E. Cervix, 6 o'clock, biopsy: Scant fragments of acute inflammatory cells; no epithelium identified. F. Cervix, 11 o'clock, biopsy: Squamous mucosa and focal endocervical epithelium within normal limits PFSH Medical History ASCUS with positive high risk HPV cervical History of fracture of arm Eczema No known health problems Surgical History No pertinent past surgical history Social History Housing: Apartment Alcohol intake: never Patient Tobacco Use Status: Never used Tobacco e-Cigarette/Vaping Use: Never Used Current occupational status: employed Cognitive needs: No Hearing needs: No Vision needs: No Female Reproductive History Menstrual Age of Menarche: 14 Review of Systems Const All systems reviewed & are unremarkable except as noted in HPI and below Reports as per HPI and Reports no additional complaints GI Reports no additional complaints Reports no additional complaints Telehealth Telehealth Telehealth Platform: [facility] Location of provider rendering services: practice address Location of patient: address on file Patient Identification confirmed using: Name, : Yes Telehealth method: video Patient verbally consented to treatment: Yes Patient verbally consented to billing insurance company: Yes Patient informed of any privacy concerns related to visit: Yes Minutes spent on Phone/Video with Pt.: 5 Assessment & Plan Assessment & Plan (1) ASCUS with positive high risk HPV cervical: Comment: 01/31 Pap smear negative 03/05 ascus HPV positive, colpo biopsy negative 05/05 ascus HPV positive, colpo biopsy negative Code(s): R87.610 - Atypical squamous cells of undetermined significance on cytologic smear of cervix (ASC-US); R87.810 - Cervical high risk human papillomavirus (HPV) DNA test positive Category: Medical Plan: Discussed with the patient the pathology results of the colposcopy biopsies & endocervical curettage . Discussed with the patient the sensitivity specificity, positive and negative predictive value in detecting cervical cancer in addition discussed the regression, persistence and progression rates. Recommended co-testing in 12 months, if cytology and or HPV are abnormal will proceed was colposcopy biopsy and endocervical curettage. Instructions given to the patient to schedule a co test appointment in 1 year. All questions answered the patient verbalized understanding. I spent a total of 20 minutes reviewing the chart, talking to the patient via video and documenting in the medical record. (2) Vulvovaginitis: Code(s): N76.0 - Acute vaginitis Category: Medical Plan: Terazol 0.8% q.h.s. for 3 days was sent to the patient's pharmacy. The patient was instructed to call if symptoms don't improve in 48 hours. Medications: New terconazole 0.8% 1 appful vaginal BEDTIME 3 days 20 grams 0RF Coding Level of Care Code Tele Est Pt Level 3 (97496) Diagnoses ASCUS with positive high risk HPV cervical R87.610; R87.810 Vulvovaginitis N76.0
--- OUTSIDE RECORDS SUMMARY | 2024-06-18 15:02 | XMS_ITS | Clinical Summary ---
Author Organization [facility] ity Address [address] [place] [address] Care Team Providers Care Detail Maker And Fitter Name Role Phone Unavailable Primary Care Provider [...]
--- OUTSIDE RECORDS SUMMARY | 2024-06-18 15:02 | XMS_ITS | Encounter Summary ---
Author Organization [facility] Address [address] [place] [address] Phone Care Team Providers Care Laborer High Density Press Name Role Phone Amarilis Fernando MD Primary Care Provider [phone] Encounter Details Date Type Department Care Team (Late st Contact Info) Description 09/27/2016 Conversion Encounter [facility] [place] [address] [place], [place] [phone] Social History Tobacco Use Types Packs/Day Years [...] on filedocumented in this encounter Care Teams Laborer High Density Press Relationship Specialty Start Date End Date Amarilis Fernando MD [address] [place] [address] PCP - General 09/21/16 08/02/22 documented as of this encounter
--- OUTSIDE RECORDS SUMMARY | 2024-06-18 15:02 | XMS_ITS | Clinical Summary ---
Author Organization [facility] Address [address] [place] [id number] Phone Care Team Providers Care Expanded Function Dental Assistant Name Role Phone Unavailable Primary Care Provider [...] nd well Other Family history of Sudden /[place] under 55, Family history of Hyperlipidemia, Family [...]
== END 2024-06-18 14:43 | disposition home or self-care (01) ==
LOC: HO.HWS 14:11
PROVIDERS: PCP Family Medicine; Visit Provider Obstetrics & Gynecology
DX: R87.610 Atypical squamous cells of undetermined significance on cytologic smear of cervix (ASC-US) (principal); R87.810 Cervical high risk human papillomavirus (HPV) DNA test positive; N76.0 Acute vaginitis
CPT/HCPCS: 99213

== ENCOUNTER → 2024-06-18 14:11 | Outpatient (BNVA) | payer OTHER, SELFPAY | PROVIDERS: PCP Family Medicine; Visit Provider Obstetrics & Gynecology ==

== ENCOUNTER 2024-09-23 13:40 | Outpatient (AMB) | payer OTHER, SELFPAY ==
[2024-09-23 13:50] VITALS: BP 96/58; PULSE 81; TEMP 36.7; O2SAT 99; BMI 27.5
--- NOTE | 2024-09-23 13:50 | AM.OFFWIN_ITS ---
Intake Vital Signs 09/23/24 13:50 Height 5 ft 4 in Weight 160 lb BMI 27.5 BP 96/58 L Blood Pressure Location Lt brachial Position Sitting Pulse 81 Pulse Source Pulse Oximeter Temp 98.1 F Temp Source Oral Pulse Oximetry (%) 99 Oxygen Delivery Method Room Air Intake Visit Reasons: EP-headaches Intake Note: presents with headaches for 4 days after working out intensely and left eye drooping today only Patient Tobacco Use Status: Never used Tobacco Allergies No Known Allergies Allergy (Verified 09/23/24 13:52) Do you need a note to return to daycare/school/sports/work: No HPI HPI Comments History of Present Illness Details History of Present Illness - The patient is a 29-year-old female pr esenting with a headache and eye drooping following a workout session. - The headache began during a workout in volving squats with dumbbells, described as a shooting sharp pain that escalated to an extreme headache rated 8/10 in severity. - The headache is intermittent, with the current intensity rated at 6/10, and is located at the back and front of the left side of her head. - Associated symptoms included transient eye drooping and dizziness, but no chest pain, shortness of breath, vision loss, or nausea. - The patient has not taken any medicati on for the headache, citing an aversion to medication unless necessary. - The patient has a family history of mi graines and experienced blood pressure issues . - The patient consumes energy drinks occ asionally and drinks coffee regularly, but the last energy drink was consumed on Saturday before the onset of symptoms. - The patient reports muscle soreness at tributed to the workout, with no numbness, tingling, or significant neck pain. - She has no associated aura, nausea, vi sual changes, CP, SOB, weakness, slurred speech,or facial droop. Physical Exam General: Cooperative, healthy appearing, comfortable, no acute distress and well developed Orientation: Patient oriented x3 Limitations: No limitations Head: Normal to inspection. No TTP of the scalp noted. Ears: Hearing grossly normal bilaterally Face and sinus: Normal facial exam Eyes: Appearance normal, both eyes and all related structures. MUSA, EOMI. Neck: Normal visual inspection and Yes full ROM. No midline cervical spinous tenderness noted. Respiratory: Normal respiratory effort and able to speak in complete sentences. Clear to auscultation bilaterally Cardiovascular: Regular rate and rhythm. Normal S1 and S2 Skin: No rashes or lesions noted Neuro: Patient oriented x 3. CN II-XII intact. Extremities: Normal to inspection, FROM of the UE bilaterally. Strength is 5/5 on the UE. Patient was informed and verbally consented to the use of an ambient scribe for clinic note documentation during this visit. COUNT INCLUDES THE [facility] Medical History ASCUS with positive high risk HPV cervical History of fracture of arm Eczema No known health problems Surgical History No pertinent past surgical history Social History (Reviewed 06/18/24 @ 14: by Kingsley Haynes MD) Housing: Apartment Alcohol intake: never Patient Tobacco Use Status: Never used Tobacco e-Cigarette/Vaping Use: Never Used Current occupational status: employed Cognitive needs: No Hearing needs: No Vision needs: No Female Reproductive History Menstrual Age of Menarche: 14 Review of Systems Const All systems reviewed & are unremarkable except as noted in HPI and below Physical Exam Vital Signs: Last Vital Signs Temp 98.1 F 09/23/24 13:50 Pulse 81 09/23/24 13:50 BP 96/58 L 09/23/24 13:50 Pulse Ox 99 09/23/24 13:50 Oxygen Delivery Method Room Air 09/23/24 13:50 BMI result Body Mass Index 27.5 Assessment & Plan Assessment & Plan (1) Headache: Code(s): R51.9 - Headache, unspecified Qualifiers: Headache type: unspecified Headache chronicity pattern: acute headache Plan DDx includes strain, vertebral artery dissection, bleed Plan - Recommend obtaining a head CT scan to rule out any serious underlying conditions due to the nature of the headache and associated symptoms. - Advise the patient to go to the ER for further evaluation and patient agrees. - Will call [facility] ER with an expect. Coding Level of Care Code Est Pt Level 3 (48957) Diagnoses Headache R51.9 Headache type: unspecified Headache chronicity pattern: acute headache
--- OUTSIDE RECORDS SUMMARY | 2024-09-23 14:05 | XMS_ITS | Encounter Summary ---
Author Organization [facility] Address [address] [place] [address] Phone Care Team Providers Care Course Instructor Name Role Phone Amarilis Fernando MD Primary Care Provider [phone] Encounter Details Date Type Department Care Team (Late st Contact Info) Description 09/27/2016 Conversion Encounter [facility] [address], [place] [id number] Social History Tobacco Use Types Packs/Day Years [...] on filedocumented in this encounter Care Teams Course Instructor Relationship Specialty Start Date End Date Amarilis Fernando MD [address] [place] [address] PCP - General 09/21/16 08/02/22 documented as of this encounter
--- OUTSIDE RECORDS SUMMARY | 2024-09-23 14:05 | XMS_ITS | Clinical Summary ---
Author Organization [facility] ity Address [address] [place] [address] Care Team Providers Care Fitness/Wellness Director Name Role Phone Unavailable Primary Care Provider [...] Screening: P ap Smear 2015 COVID-19 Vaccine (1 - 2023-2 5 season) 2023 Depression Screening 02/12/2024 Influenza Vaccine (#1) 2024 HIB Vaccines Aged Out No longer [...] 5 Years) and At-Risk Patients (6 to 49 Years) Aged Out No longer eligible b ased on patient's age to complete this topic RSV Immunization Patients Un luisana 20 months Aged Out No longer eligible b ased on patient's age to complete this topic Varicella Vaccines Aged Out No longer eligible based on patient's age to complete this topic
== END 2024-09-23 15:11 | disposition home or self-care (01) ==
PROVIDERS: PCP Family Medicine; Visit Provider Physician Assistant Medical
DX: R51.9 Headache, unspecified (principal)

== ENCOUNTER 2024-09-23 14:57 | Emergency (ER) | payer OTHER, SELFPAY ==
[2024-09-23 15:12] VITALS: BP 129/85; PULSE 60; RESP 14; TEMP 36.6; O2SAT 100; BMI 27.5
--- NOTE | 2024-09-23 15:12 | ED.GENADULT ---
HPI - General Adult General Chief complaint: Back Pain/Injury Stated complaint: spine pain from lifting, DR chauncey, droopy eye Related Data Allergies Allergy/AdvReac Type Severity Reaction Status Date / Time No Known Allergies Allergy Verified 09/23/24 15:14 [facility] Past Medical History Medical History ASCUS with positive high risk HPV cervical History of fracture of arm Eczema No known health problems Surgical History No pertinent past surgical history Social History Social History Housing: Apartment Alcohol intake: never Patient Tobacco Use Status: Never used Tobacco e-Cigarette/Vaping Use: Never Used Advance Directives: No Advance Directives Information Provided: No Do you have a plan to hurt others: No Plan Current occupational status: employed Cognitive needs: No Hearing needs: No Vision needs: No Physical Exam ED Vital Signs: BMI result Body Mass Index 27.5 Course Course Course Narrative: This is a rapid medical exam performed by Stan Bolden NP: Additional HPI, ROS, PE not included below will be deferred to primary provider. Patient is a 29-year-old female presenting from urgent care with complaint of headache since Saturday which began while weight lifting. States her left eye was drooping today, lasted around 2 minutes. Has not taken any OTC medications for her symptoms. States headache has come and gone. Denies worst headache of life. Denies any nausea, vomiting, photophobia. Plan: labs, CT head, viral serology Patient left the emergency department before myself or any of the other clinicians could review or explain physical exam findings, test results, need or lack there of for additional testing, treatment options, or a treatment plan. Medical Decision Making Lab Data 09/23/24 15:20 09/23/24 15:20 Labs: Lab Results 09/23/24 Range/Units 15:20 WBC 4.4 L (4.8-10.8) X10*3/uL RBC 4.86 (4.20-5.50) X10*6/uL Hgb 12.6 (12.0-16.0) g/dl Hct 38.9 (37.0-47.0) % MCV 80.0 (80.0-98.0) fL MCH 25.9 L (27.0-33.0) pg MCHC 32.4 (31.0-35.0) g/dl RDW 13.3 (11.0-16.0) % Plt Count 259 (160-400) X10*3/uL MPV 10.0 (9.4-12.3) fL Immature Gran % (Auto) 0.2 (0.0-0.4) % Neut % (Auto) 34.4 L (45-73) % Lymph % (Auto) 54.1 H (20-40) % Cedar % (Auto) 8.6 (2-11) % Eos % (Auto) 1.8 (0-4) % Baso % (Auto) 0.9 (0-2) % Lymph # (Auto) 2.4 (1.2-4.9) X10*3/uL Cedar # (Auto) 0.4 (0.1-1.2) X10*3/uL Eos # (Auto) 0.1 (0.0-0.4) X10*3/uL Baso # (Auto) 0.0 (0.0-0.2) X10*3/uL Abs Immat Gran (auto) 0.01 (0.00-0.03) X10*3/uL Absolute Neuts (auto) 1.5 L (2.0-8.3) x10*3/uL Absolute Nucleated RBC 0.000 (0.0-0.012) X10*3/uL Nucleated RBC % (auto) 0.0 (0.0-0.2) /100WBC Sodium 140 (135-145) mmol/L Potassium 4.1 (3.3-5.1) mmol/L Chloride 106 (96-108) mmol/L Carbon Dioxide 27 (22-29) mmol/L Anion Gap 11 L (12-20) BUN 17 H (9-16) mg/dL Creatinine 0.91 (0.5-1.4) mg/dL Estim Creat Clear Calc 88.2 Estimated GFR > 60 Random Glucose 106 (60-115) mg/dL Calcium 8.9 D (8.4-10.2) mg/dL Total Bilirubin 0.3 (0.0-1.0) mg/dL AST 29 (5-31) U/L ALT 20 (0-31) U/L Alkaline Phosphatase 82 (39-117) U/L Total Protein 6.8 (6.5-8.0) g/dL Albumin 4.6 (3.5-5.0) g/dL Beta HCG, Quant < 2 mIU/mL Influenza Type A (PCR) NEGATIVE (Negative) Influenza Type B (PCR) NEGATIVE (Negative) RSV RNA Qual (PCR) NEGATIVE (Negative) SARS-CoV-2 RNA (RT-PCR) NEGATIVE (Negative) Discharge Plan Discharge Clinical Impression: Headache Patient Disposition: Left W/O Completing Treatment Discharge Date/Time: 09/23/24 19:24
[2024-09-23 15:25] LABS: MANUAL DIFF FLAG NO
[2024-09-23 15:27] LABS: Hematocrit 38.9 % (37.0-47.0); Hemoglobin 12.6 g/dl (12.0-16.0); Imm Gran Abs Auto 0.01 X10*3/uL (0.00-0.03); Imm Gran Pct Auto 0.2 % (0.0-0.4); Lymphocytes Absolute Auto 2.4 X10*3/uL (1.2-4.9); Mean Corpuscular HGB Conc 32.4 g/dl (31.0-35.0); Mean Corpuscular Hemoglobin 25.9 pg (27.0-33.0); Mean Corpuscular Volume 80.0 fL (80.0-98.0); NRBC Abs Auto 0.000 X10*3/uL (0.0-0.012); NRBC Pct Auto 0.0 /100WBC (0.0-0.2); Platelet Count 259 X10*3/uL (160-400); Red Blood Count 4.86 X10*6/uL (4.20-5.50); White Blood Count 4.4 X10*3/uL (4.8-10.8)
[2024-09-23 15:40] LABS: Alanine Aminotransferase 20 U/L (0-31); Albumin Level 4.6 g/dL (3.5-5.0); Alkaline Phosphatase 82 U/L (39-117); Anion Gap 11 (12-20); Aspartate Amino Transferase 29 U/L (5-31); Blood Urea Nitrogen 17 mg/dL (9-16); Calcium 8.9 mg/dL (8.4-10.2); Carbon Dioxide 27 mmol/L (22-29); Chloride 106 mmol/L (96-108); Creatinine Clr Calc Pharmacy 88.2; Estimated Glomerular Filt Rate > 60; Potassium 4.1 mmol/L (3.3-5.1); Sodium 140 mmol/L (135-145); Total Protein 6.8 g/dL (6.5-8.0)
[2024-09-23 16:15] LABS: Resp Syncy Virus RNA Qual PCR NEGATIVE (Negative); SARS COV2 PCR INHOUSE NEGATIVE (Negative)
== END 2024-09-23 19:24 | disposition left against medical advice (07) ==
LOC: HO.ED 19:21
PROVIDERS: Registered Nurse Emergency; Emergency Provider Emergency Medicine; PCP Family Medicine
DX: R51.9 Headache, unspecified (principal); M54.50 Low back pain, unspecified; R29.810 Facial weakness; Z03.818 Encounter for observation for suspected exposure to other biological agents ruled out
CPT/HCPCS: 36415; 80053; 84702; 85025; 87637; 99212; 99281; 99283